=== PATIENT | male | born 1960 | race American Indian/Alaskan Native ===

== ENCOUNTER 2018-07-16 15:06 | Inpatient (IN) | payer OTHER ==
[2018-07-16 15:11] VITALS: BMI 25.0
--- NOTE | 2018-07-16 15:45 | C.PDOC ---
History Of Present Illness 58 y/o male presents to ED with c/o left 1st toe diabetic ulcer for "1 year" worse for 1 month. Patient took unknown antibiotic and finished 1 month ago with no improvement. Patient saw Dr. Johnson who advised patient to come to ED for admission. Patient denies fever, chills, trauma or any other complaints at this time. Time Seen by Provider: 07/16/18 15:26 Chief Complaint (Nursing): Abnormal Skin Integrity History Per: Patient History/Exam Limitations: no limitations Onset/Duration Of Symptoms: Days Current Symptoms Are (Timing): Still Present Past Medical History Reviewed: Historical Data, Nursing Documentation, Vital Signs Vital Signs: Last Vital Signs Temp 98.6 F 07/16/18 15:12 Pulse 85 07/16/18 15:12 Resp 18 07/16/18 15:12 BP 108/74 07/16/18 15:12 Pulse Ox 97 07/16/18 15:12 - Medical History PMH: HTN, Hypercholesterolemia Surgical History: No Surg Hx Family History: States: No Known Family Hx - Social History Hx Tobacco Use: Yes Hx Alcohol Use: Yes Hx Substance Use: No - Immunization History Hx Tetanus Toxoid Vaccination: No Hx Influenza Vaccination: Yes Hx Pneumococcal Vaccination: No Review Of Systems Constitutional: Negative for: Fever, Chills Musculoskeletal: Positive for: Foot Pain Skin: Positive for: Other (ulcer to 1st left toe). Negative for: Rash Physical Exam - Physical Exam Appears: Non-toxic, No Acute Distress Skin: Warm, Dry, No Rash Head: Atraumatic, Normacephalic Eye(s): bilateral: Normal Inspection Oral Mucosa: Moist Neck: Normal ROM, Supple Cardiovascular: Rhythm Regular Respiratory: Normal Breath Sounds, No Rales, No Rhonchi, No Wheezing Extremity: Capillary Refill (<2 seconds), Other (Diabetic foot ulcerabove left 1st toe, No lymphangitis or discharge. Multiple amputations on both feet) Extremity: Bilateral: Normal ROM Pulses: Left Dorsalis Pedis: Normal Neurological/Psych: Oriented x3, Normal Speech, Normal Motor, Normal Sensation ED Course And Treatment - Laboratory Results Result Diagrams: 07/16/18 16:22 07/16/18 16:22 O2 Sat by Pulse Oximetry: 97 (RA) Pulse Ox Interpretation: Normal - Radiology CXR: Interpreted by Me CXR Interpretation: Yes: No Acute Disease - Other Rad L 1 TOE X-Ray: Interpreted by Me ( DISTAL PHALANX DECORT NO FX) Progress - Re-Evaluation Re-evaluation Note: 07/16/18 15:56 D/W POD RESIDENT WILL EVAL IN ER 07/16/18 17:01 D/W DR Ruth GTZ C/F PMD WILL ADMIT - Data Reviewed Data Reviewed: Lab, Diagnostic imaging, Old records Disposition Counseled Patient/Family Regarding: Studies Performed, Diagnosis - Disposition Disposition: HOSPITALIZED Disposition Time: 17:01 Condition: SERIOUS Forms: [facility] (Jordanian) - POA Present On Arrival: None - Clinical Impression Clinical Impression: Toe ulcer, Osteomyelitis - Scribe Statement The provider has reviewed the documentation as recorded by the Kurtibana Tucker All medical record entries made by the Kurtibana were at my direction and personally dictated by me. I have reviewed the chart and agree that the record accurately reflects my personal performance of the history, physical exam, medic al decision making, and the department course for this patient. I have also personally directed, reviewed, and agree with the discharge instructions and disposition.
[2018-07-16] MEDS ORDERED: Vancomycin 1 GM 1 GM/250 ML BAG IV SCH (16:00)
[2018-07-16 16:25] LABS: BASO # 0.1 K/uL (0.0-0.2); BASO % 0.9 % (0.0-2.0); EOS # 0.1 K/uL (0.0-0.7); EOS % 1.1 % (0.0-4.0); LYMPH # 1.7 K/uL (1.0-4.3); LYMPH % 24.6 % (20.0-40.0); MEAN CELL VOLUME 97.2 fL (80.0-94.0); MEAN CORPUSCULAR HEMOGLOBIN 33.1 pg (27.0-31.0); MEAN PLATELET VOLUME 9.3 fL (7.2-11.7); MONO # 0.6 K/uL (0.0-0.8); MONO % 8.8 % (0.0-10.0); NEUT # 4.5 K/uL (1.8-7.0); NEUT % 64.6 % (50.0-75.0); NRBC % 0.1 % (0.0-2.0); RBC 3.88 Mil/uL (4.40-5.90); RED CELL DISTRIBUTION WIDTH 15.2 % (11.5-14.5); WHITE BLOOD COUNT 6.9 K/uL (4.8-10.8)
[2018-07-16 16:27] LABS: HEMOGLOBIN 12.8 g/dL (12.0-18.0)
[2018-07-16 16:40] LABS: BLOOD UREA NITROGEN 10 mg/dL (9-20); CALCIUM 8.4 mg/dl (8.6-10.4); GFR NON-AFRICAN AMERICAN > 60
--- NOTE | 2018-07-16 16:45 | RAD ---
PROCEDURE: Radiographs of the left great toe. TECHNIQUE:: AP radiograph of the left foot, with oblique and lateral view of the left great toe. COMPARISON: None. FINDINGS: BONES: At the 2nd and 3rd interphalangeal joint levels just proximal to that amputation status is noted. No acute fracture seen. On the lateral view of the great toe plantar cortical irregularities concerning for contiguous osteomyelitis and contiguous cellulitis is suspect. Correlate clinically. The frontal view shows prominent exostosis of the medial great toe distal phalanx. 1st metatarsal-phalangeal joint arthrosis Flexion deformity of the 4th DIP joint JOINTS: Normal. SOFT TISSUES: Normal. OTHER FINDINGS: None. IMPRESSION: On the lateral view of the great toe plantar cortical irregularities concerning for contiguous osteomyelitis and contiguous cellulitis is suspect. Correlate clinically. The frontal view shows prominent exostosis of the medial great toe distal phalanx. Other findings as above. Comments: Study marked for PA review .
--- NOTE | 2018-07-16 16:51 | RAD ---
Date of service: 07/16/2018 HISTORY: MED CLEAR COMPARISON: 08/09/2014 TECHNIQUE: PA and lateral three views FINDINGS: LUNGS: Bilateral hyperaeration. Trace left basal thread-like atelectasis/scarring. No interval consolidation. PLEURA: No significant pleural effusion identified. No pneumothorax apparent. CARDIOVASCULAR: There is presence of aortic atherosclerotic calcification on x-ray. Mild cardiomegaly no pulmonary vascular congestion. OSSEOUS STRUCTURES: Exuberant thoraco lumbar spondylosis. Calcification ossification of anterior longitudinal ligament. Diffuse idiopathic skeletal hyperostoses DISH is inferred VISUALIZED UPPER ABDOMEN: Normal. OTHER FINDINGS: None. IMPRESSION: No acute infiltrate. Other findings as above.
[2018-07-16] MEDS ORDERED: Vancomycin 1 gm/NS 200 ml 1 GM/200 ML BAG IVPB ONE (17:00)
[2018-07-16] MEDS: Piperacill/Tazo 3.375gm in Dex 3.375 GM/50 ML BAG IVPB SCH (20:10)
[2018-07-16] MEDS: Enoxaparin 40 mg Syringe SC SCH (20:11)
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
[2018-07-17] MEDS: Piperacill/Tazo 3.375gm in Dex 3.375 GM/50 ML BAG IVPB SCH ×3 (03:00→19:40)
[2018-07-17] MEDS: Enoxaparin 40 mg Syringe SC SCH (10:01)
--- NOTE | 2018-07-17 10:01 | CP.PCM.PN ---
Subjective - Date & Time of Evaluation Date of Evaluation: 07/17/18 Time of Evaluation: 09:58 - Subjective Subjective: Vascular Surgery Progress Note for Dr. Johnson This 58M was seen and examined this Am at bedside no acute events reported overnight. He reports that his legs and arms feel cold and that they hurt when he walks otherwise no complaints. Objective - Vital Signs/Intake and Output Vital Signs (last 24 hours): Temp Pulse Resp BP Pulse Ox 98 F 84 20 153/98 H 96 07/17/18 07:43 07/17/18 07:43 07/17/18 07:43 07/17/18 07:43 07/17/18 07:43 Intake and Output: 07/17/18 07/17/18 06:59 18:59 Intake Total 200 Balance 200 - Medications Medications: Current Medications Acetaminophen (Tylenol 325mg Tab) 650 mg PO Q6 PRN PRN Reason: Fever >100.4 F Enoxaparin Sodium (Lovenox) 40 mg SC DAILY [facility] Last Admin: 07/16/18 20:11 Dose: Not Given Vancomycin HCl 1 gm/ Sodium (Chloride) 250 mls @ 166.7 mls/hr IVPB Q24H [facility]; Protocol Piperacillin Sod/Tazobactam Sod (Zosyn 3.375 Gm Iv Premix) 3.375 gm in 50 mls @ 100 mls/hr IVPB Q8H [facility]; Protocol Last Admin: 07/16/18 20:10 Dose: 100 mls/hr Insulin Human Regular (Novolin R) 0 unit SC ACHS [facility]; Protocol Pneumococcal Polyvalent Vaccine (Pneumovax 23 Vaccine) 0.5 ml IM .ONCE ONE Stop: 07/18/18 10:01 - Labs Labs: 07/16/18 16:22 07/16/18 16:22 - Constitutional Appears: Non-toxic, No Acute Distress - Head Exam Head Exam: ATRAUMATIC, NORMOCEPHALIC - Eye Exam Eye Exam: EOMI - ENT Exam ENT Exam: Mucous Membranes Moist - Respiratory Exam Respiratory Exam: NORMAL BREATHING PATTERN - Cardiovascular Exam Cardiovascular Exam: +S1, +S2 - GI/Abdominal Exam GI & Abdominal Exam: Soft. absent: Tenderness - Extremities Exam Additional comments: LLE DP and PT palpable 2+ - Neurological Exam Neurological Exam: Alert, Awake - Psychiatric Exam Psychiatric exam: Normal Affect, Normal Mood - Skin Skin Exam: Dry, Intact Assessment and Plan - Assessment and Plan (Free Text) Assessment: 58M with Right hallux ulcer Followup vascular studies Continue medical management per primary team continue management per podiatry. Further recs per Dr. Alex Looney PGY3
[2018-07-17] MEDS ORDERED: (Novolin R) Insulin Human Regular 100 units/ml vial SC SCH (11:30)
[2018-07-17 11:33] LABS: BASO # 0.1 K/uL (0.0-0.2); BASO % 0.8 % (0.0-2.0); EOS # 0.2 K/uL (0.0-0.7); EOS % 1.8 % (0.0-4.0); HEMOGLOBIN 13.5 g/dL (12.0-18.0); LYMPH # 1.4 K/uL (1.0-4.3); LYMPH % 15.8 % (20.0-40.0); MEAN CELL VOLUME 98.1 fL (80.0-94.0); MEAN CORPUSCULAR HEMOGLOBIN 33.4 pg (27.0-31.0); MEAN CORPUSCULAR HGB CONC 34.1 g/dL (33.0-37.0); MEAN PLATELET VOLUME 9.8 fL (7.2-11.7); MONO # 0.9 K/uL (0.0-0.8); MONO % 10.3 % (0.0-10.0); NEUT # 6.2 K/uL (1.8-7.0); NEUT % 71.3 % (50.0-75.0); RBC 4.05 Mil/uL (4.40-5.90); WHITE BLOOD COUNT 8.7 K/uL (4.8-10.8)
[2018-07-17 11:39] LABS: PROTHROMBIN TIME 11.2 SECONDS (9.7-12.2)
[2018-07-17 11:47] LABS: ALB/GLOB RATIO 1.3 (1.0-2.1); ALBUMIN 4.2 g/dL (3.5-5.0); ALT/SGPT 39 U/L (21-72); AST/SGOT 69 U/L (17-59); BLOOD UREA NITROGEN 10 mg/dL (9-20); CALCIUM 8.8 mg/dl (8.6-10.4); GFR NON-AFRICAN AMERICAN > 60
[2018-07-17] MEDS: Multiple Vitamins Tab PO SCH (12:25)
--- NOTE | 2018-07-17 12:55 | CP.PCM.PN ---
Subjective - Date & Time of Evaluation Date of Evaluation: 07/17/18 Time of Evaluation: 12:49 - Subjective Subjective: Podiatry Consult Note for Dr. Blackman 58M seen and evaluated at bedside with Dr. Blackman for left plantar hallux ulceration. Patient is AAO x 3 and NAD, resting comfortably in bed at time of visit. Denies any pain to his foot or any new pedal complaints at this time. Denies any pain to his foot. Denies any recent N/V/F/C/CP/SOB/D Objective - Vital Signs/Intake and Output Vital Signs (last 24 hours): Temp Pulse Resp BP Pulse Ox 98 F 84 20 153/98 H 96 07/17/18 07:43 07/17/18 07:43 07/17/18 07:43 07/17/18 07:43 07/17/18 07:43 Intake and Output: 07/17/18 07/17/18 06:59 18:59 Intake Total 200 Balance 200 - Medications Medications: Current Medications Acetaminophen (Tylenol 325mg Tab) 650 mg PO Q6 PRN PRN Reason: Fever >100.4 F Amlodipine Besylate (Norvasc) 5 mg PO DAILY [facility] Last Admin: 07/17/18 12:25 Dose: 5 mg Ascorbic Acid (Vitamin C 500 Mg Tab) 500 mg PO DAILY [facility] Last Admin: 07/17/18 12:25 Dose: 500 mg Enoxaparin Sodium (Lovenox) 40 mg SC DAILY [facility] Last Admin: 07/17/18 10:01 Dose: Not Given Gabapentin (Neurontin) 300 mg PO HS [facility] Vancomycin HCl 1 gm/ Sodium (Chloride) 250 mls @ 166.7 mls/hr IVPB Q24H [facility]; Protocol Piperacillin Sod/Tazobactam Sod (Zosyn 3.375 Gm Iv Premix) 3.375 gm in 50 mls @ 100 mls/hr IVPB Q8H [facility]; Protocol Last Admin: 07/17/18 10:00 Dose: 100 mls/hr Multivitamins (Hexavitamin) 1 tab PO DAILY [facility] Last Admin: 07/17/18 12:25 Dose: 1 tab Pneumococcal Polyvalent Vaccine (Pneumovax 23 Vaccine) 0.5 ml IM .ONCE ONE Stop: 07/18/18 10:01 - Labs Labs: 07/17/18 11:24 07/17/18 11:24 PT 11.2 SECONDS (9.7-12.2) 07/17/18 11:24 INR 1.0 07/17/18 11:24 APTT 29 SECONDS (21-34) 07/17/18 11:24 - Constitutional Appears: Well, Non-toxic, No Acute Distress - Extremities Exam Additional comments: LLE focused exam: Vasc: DP/PT pulses palpable 2/4. Skin temperature warm to warm from proximal to distal WNL. CFT < 3 seconds to all digits. Minimal edema noted to hallux Neuro: Epicritic and protective sensation grossly diminished Derm: Superficial ulceration with partially overlying callous formation noted to plantar aspect of left hallux. Minimal serous drainage appreciated. No malodor, probe to bone, tracking, tunneling or undermining. No other clinical signs of infection appreciated MSK: Minimal POP to plantar aspect of hallux. Previous partial amputation of left second and third digits appreciated - Neurological Exam Neurological Exam: Alert, Awake, Oriented x3 - Psychiatric Exam Psychiatric exam: Normal Affect, Normal Mood Assessment and Plan - Assessment and Plan (Free Text) Assessment: 58M seen and evaluated at bedside with Dr. Blackman for left plantar hallux ulceration. Plan: Patient seen and evaluated with Dr. Blackman Afebrile, absent leukocytosis Continue IV abx per ID F/u Vascular studies F/u ESR F/u Wound cx L foot xray: On the lateral view of the great toe plantar cortical irre gularities concerning for contiguous osteomyelitis and contiguous cellulitis is suspect. Correlate clinically. The frontal view shows prominent exostosis of the medial great toe distal phalanx. Patient refusing MRI No plan for surgical intervention at this time Dr. Blackman would like patient placed in [facility] for continued IV abx Podiatry will continue to follow while patient in house
--- NOTE | 2018-07-17 14:50 | CP.PCM.CON ---
History of Present Illness - History of Present Illness History of Present Illness: 58M was sent to by his armature winder for ulcer of L hallux. Pt states he has had a small ulcer on his L great toe for some time now He has been seeing his armature winder and was told to come to the hospital for further evaluation of his vascular disease. ID CONSULTED FOR ANTIBIOTIC MANAGEMENT PODIATRY AND VASCULAR ON BOARD IMAGING AND CULTURES PENDING PMHx: HTN PSHx: L inguinal hernia rx, R hallux amputation SocialHx: denies smoking/EtOH/drugs Review of Systems - Review of Systems All systems: reviewed and no additional remarkable complaints except - Constitutional Constitutional: As Per HPI - EENT Eyes: absent: As Per HPI, Blind Spots, Blurred Vision, Change in Vision, Decre ased Night Vision, Diplopia, Discharge, Dry Eye, Exophthalmos, Floaters, Irritation, Itchy Eyes, Loss of Peripheral Vision, Pain, Photophobia, Requires Corrective Lenses, Sees Flashes, Spots in Vision, Tunnel Vision, Other Visual Disturbances, Loss of Vision, Other Ears: absent: As Per HPI, Decreased Hearing, Ear Discharge, Ear Pain, Tinnitus, Abnormal Hearing, Disequilibrium, Dizziness, Other Nose/Mouth/Throat: absent: As Per HPI, Epistaxis, Nasal Congestion, Nasal Discharge, Nasal Obstruction, Nasal Trauma, Nose Pain, Post Nasal Drip, Sinus P ain, Sinus Pressure, Bleeding Gums, Change in Voice, Dental Pain, Dry Mouth, Dysphagia, Halitosis, Hoarsness, Lip Swelling, Mouth Lesions, Mouth Pain, Odynophagia, Sore Throat, Throat Swelling, Tongue Swelling, Facial Pain, Neck Pain, Neck Mass, Other - Cardiovascular Cardiovascular: absent: As Per HPI, Acrocyanosis, Chest Pain, Chest Pain at Rest, Chest Pain with Activity, Claudication, Diaphoresis, Dyspnea, Dyspnea on Exertion, Edema, Irregular Heart Rhythm, Pain Radiating to Arm/Neck/Jaw, Leg Edema, Leg Ulcers, Lightheadedness, Orthopnea, Palpitations, Paroxysmal Nocturnal Dyspnea, Pedal Edema, Radiating Pain, Rapid Heart Rate, Slow Heart Rate, Syncope, Other - Respiratory Respiratory: absent: As Per HPI, Cough, Dyspnea, Hemoptysis, Dyspnea on Exertion, Wheezing, Snoring, Stridor, Pain on Inspiration, Chest Congestion, Excessive Mucous Production, Change in Mucous Color, Pain with Coughing, Other - Genitourinary Genitourinary: absent: As Per HPI, Change in Urinary Stream, Difficulty Urinating, Dysuria, Flank Pain, Hematuria, Pyuria, Nocturia, Urinary Incontinence, Urinary Frequency, Urinary Hesitance, Urinary Urgency, Voiding Freq/Small Amts, Freq UTI, Hx Renal/Bladder Calculi, Hx /Renal Surgery, Bladder Distension, Other - Musculoskeletal Musculoskeletal: As Per HPI - Integumentary Integumentary: As Per HPI - Neurological Neurological: absent: As Per HPI, Abnormal Gait, Abnormal Hearing, Abnormal Movements, Abnormal Speech, Behavioral Changes, Burning Sensations, Confusion, Convulsions, Disequilibrium, Dizziness, Numbness, Focal Weakness, Frequent Falls, Headaches, Lack of Coordination, Loss of Vision, Memory Loss, Paresthesias, Radicular Pain, Restless Legs, Sensory Deficit, Syncope, Tingling, Tremor, Vertigo, Weakness, Other Visual Disturbances, Other Past Patient History - Past Medical History & Family History Past Medical History?: Yes - Past Social History Smoking Status: Smoker Currrent Status Unknown - CARDIAC Hx Hypertension: Yes - PULMONARY Hx Tuberculosis: No - NEUROLOGICAL Hx Neurological Disorder: Yes HX Cerebrovascular Accident: Yes ("TWO STROKES") - ENDOCRINE/METABOLIC Hx Endocrine Disorders: Yes Hx Diabetes Mellitus Type 2: Yes - HEMATOLOGICAL/ONCOLOGICAL Hx Cancer: No - INTEGUMENTARY Hx Dermatological Problems: Yes - MUSCULOSKELETAL/RHEUMATOLOGICAL Hx Musculoskeletal Disorders: Yes Hx Falls: No Hx Unsteady Gait: Yes Other/Comment: w/ bilateral foot amputation, use quad cane for walking - GASTROINTESTINAL Hx Gastrointestinal Disorders: No - GENITOURINARY/GYNECOLOGICAL Hx Genitourinary Disorders: No - PSYCHIATRIC Hx Substance Use: No - SURGICAL HISTORY Hx Surgeries: Yes Hx Herniorrhaphy: Yes Other/Comment: W surgery - ANESTHESIA Hx Anesthesia: Yes Hx Anesthesia Reactions: No Meds Allergies/Adverse Reactions: Allergies Allergy/AdvReac Type Severity Reaction Status Date / Time No Known Allergies Allergy Verified 07/16/18 15:10 - Medications Medications: Current Medications Acetaminophen (Tylenol 325mg Tab) 650 mg PO Q6 PRN PRN Reason: Fever >100.4 F Amlodipine Besylate (Norvasc) 5 mg PO DAILY [facility] Last Admin: 07/17/18 12:25 Dose: 5 mg Ascorbic Acid (Vitamin C 500 Mg Tab) 500 mg PO DAILY [facility] Last Admin: 07/17/18 12:25 Dose: 500 mg Enoxaparin Sodium (Lovenox) 40 mg SC DAILY [facility] Last Admin: 07/17/18 10:01 Dose: Not Given Gabapentin (Neurontin) 300 mg PO HS [facility] Vancomycin HCl 1 gm/ Sodium (Chloride) 250 mls @ 166.7 mls/hr IVPB Q24H [facility]; Protocol Piperacillin Sod/Tazobactam Sod (Zosyn 3.375 Gm Iv Premix) 3.375 gm in 50 mls @ 100 mls/hr IVPB Q8H [facility]; Protocol Last Admin: 07/17/18 10:00 Dose: 100 mls/hr Multivitamins (Hexavitamin) 1 tab PO DAILY [facility] Last Admin: 07/17/18 12:25 Dose: 1 tab Pneumococcal Polyvalent Vaccine (Pneumovax 23 Vaccine) 0.5 ml IM .ONCE ONE Stop: 07/18/18 10:01 Physical Exam - Constitutional Appears: Non-toxic, Chronically Ill - Head Exam Head Exam: NORMOCEPHALIC - Eye Exam Eye Exam: absent: Scleral icterus - ENT Exam ENT Exam: Mucous Membranes Dry - Neck Exam Neck exam: Negative for: Lymphadenopathy - Respiratory Exam Respiratory Exam: Decreased Breath Sounds - Cardiovascular Exam Cardiovascular Exam: REGULAR RHYTHM - GI/Abdominal Exam GI & Abdominal Exam: Diminished Bowel Sounds, Soft - Rectal Exam Rectal Exam: Deferred - Exam Exam: NORMAL INSPECTION - Extremities Exam Extremities exam: Negative for: pedal edema Additional comments: + ulcer left great toe - Back Exam Back exam: absent: CVA tenderness (L), CVA tenderness (R) - Neurological Exam Neurological exam: Alert, CN II-XII Intact, Oriented x3, Reflexes Normal - Psychiatric Exam Psychiatric exam: Normal Mood - Skin Skin Exam: Dry Results - Vital Signs Recent Vital Signs: Last Vital Signs Temp 98 F 07/17/18 07:43 Pulse 84 07/17/18 07:43 Resp 20 07/17/18 07:43 BP 153/98 H 07/17/18 07:43 Pulse Ox 96 07/17/18 07:43 - Labs Result Diagrams: 07/17/18 11:24 07/17/18 11:24 Labs: Laboratory Results - last 24 hr 07/16/18 07/16/18 07/16/18 15:27 16:22 16:22 WBC 6.9 RBC 3.88 L Hgb 12.8 D Hct 37.7 MCV 97.2 H MCH 33.1 H MCHC 34.0 RDW 15.2 H Plt Count 128 L MPV 9.3 Neut % (Auto) 64.6 Lymph % (Auto) 24.6 [place] % (Auto) 8.8 Eos % (Auto) 1.1 Baso % (Auto) 0.9 Neut # (Auto) 4.5 Lymph # (Auto) 1.7 [place] # (Auto) 0.6 Eos # (Auto) 0.1 Baso # (Auto) 0.1 Differential Comment ESR PT INR APTT Sodium 143 Potassium 3.7 Chloride 101 Carbon Dioxide 27 Anion Gap 19 BUN 10 Creatinine 0.6 L Est GFR ( Amer) > 60 Est GFR (Non-Af Amer) > 60 POC Glucose (mg/dL) 128 H Random Glucose 93 Hemoglobin A1c Calcium 8.4 L Phosphorus Magnesium Total Bilirubin AST ALT Alkaline Phosphatase Total Protein Albumin Globulin Albumin/Globulin Ratio 07/16/18 07/17/18 07/17/18 21:43 07:12 11:19 WBC RBC Hgb Hct MCV MCH MCHC RDW Plt Count MPV Neut % (Auto) Lymph % (Auto) [place] % (Auto) Eos % (Auto) Baso % (Auto) Neut # (Auto) Lymph # (Auto) [place] # (Auto) Eos # (Auto) Baso # (Auto) Differential Comment ESR PT INR APTT Sodium Potassium Chloride Carbon Dioxide Anion Gap BUN Creatinine Est GFR ( Amer) Est GFR (Non-Af Amer) POC Glucose (mg/dL) 118 H 91 92 Random Glucose Hemoglobin A1c Calcium Phosphorus Magnesium Total Bilirubin AST ALT Alkaline Phosphatase Total Protein Albumin Globulin Albumin/Globulin Ratio 07/17/18 07/17/18 07/17/18 11:24 11:24 11:24 WBC 8.7 RBC 4.05 L Hgb 13.5 Hct 39.8 MCV 98.1 H MCH 33.4 H MCHC 34.1 RDW 15.0 H Plt Count 130 MPV 9.8 Neut % (Auto) 71.3 Lymph % (Auto) 15.8 L [place] % (Auto) 10.3 H Eos % (Auto) 1.8 Baso % (Auto) 0.8 Neut # (Auto) 6.2 Lymph # (Auto) 1.4 [place] # (Auto) 0.9 H Eos # (Auto) 0.2 Baso # (Auto) 0.1 Differential Comment ESR 9 PT INR APTT Sodium 139 Potassium 3.6 Chloride 98 Carbon Dioxide 28 Anion Gap 17 BUN 10 Creatinine 0.8 Est GFR ( Amer) > 60 Est GFR (Non-Af Amer) > 60 POC Glucose (mg/dL) Random Glucose 98 Hemoglobin A1c 5.6 Calcium 8.8 Phosphorus 2.9 Magnesium 1.7 Total Bilirubin 0.7 AST 69 H ALT 39 Alkaline Phosphatase 68 Total Protein 7.5 Albumin 4.2 Globulin 3.3 Albumin/Globulin Ratio 1.3 07/17/18 11:24 WBC RBC Hgb Hct MCV MCH MCHC RDW Plt Count MPV Neut % (Auto) Lymph % (Auto) [place] % (Auto) Eos % (Auto) Baso % (Auto) Neut # (Auto) Lymph # (Auto) [place] # (Auto) Eos # (Auto) Baso # (Auto) Differential Comment ESR PT 11.2 INR 1.0 APTT 29 Sodium Potassium Chloride Carbon Dioxide Anion Gap BUN Creatinine Est GFR ( Amer) Est GFR (Non-Af Amer) POC Glucose (mg/dL) Random Glucose Hemoglobin A1c Calcium Phosphorus Magnesium Total Bilirubin AST ALT Alkaline Phosphatase Total Protein Albumin Globulin Albumin/Globulin Ratio Assessment & Plan (1) Osteomyelitis Status: Acute (2) Toe ulcer Status: Acute (3) Alcohol abuse Status: Acute - Assessment and Plan (Free Text) Assessment: vascular and podiatry on board cont iv rx as ordered await cultures check vanco levels
--- NOTE | 2018-07-17 14:59 | CP.PCM.PN ---
Subjective - Date & Time of Evaluation Date of Evaluation: 07/17/18 Time of Evaluation: 08:00 - Subjective Subjective: clinically same Objective - Vital Signs/Intake and Output Vital Signs (last 24 hours): Temp Pulse Resp BP Pulse Ox 98 F 84 20 153/98 H 96 07/17/18 07:43 07/17/18 07:43 07/17/18 07:43 07/17/18 07:43 07/17/18 07:43 Intake and Output: 07/17/18 07/17/18 06:59 18:59 Intake Total 200 Balance 200 - Medications Medications: Current Medications Acetaminophen (Tylenol 325mg Tab) 650 mg PO Q6 PRN PRN Reason: Fever >100.4 F Amlodipine Besylate (Norvasc) 5 mg PO DAILY [facility] Last Admin: 07/17/18 12:25 Dose: 5 mg Ascorbic Acid (Vitamin C 500 Mg Tab) 500 mg PO DAILY [facility] Last Admin: 07/17/18 12:25 Dose: 500 mg Enoxaparin Sodium (Lovenox) 40 mg SC DAILY [facility] Last Admin: 07/17/18 10:01 Dose: Not Given Gabapentin (Neurontin) 300 mg PO HS [facility] Vancomycin HCl 1 gm/ Sodium (Chloride) 250 mls @ 166.7 mls/hr IVPB Q24H [facility]; Protocol Piperacillin Sod/Tazobactam Sod (Zosyn 3.375 Gm Iv Premix) 3.375 gm in 50 mls @ 100 mls/hr IVPB Q8H [facility]; Protocol Last Admin: 07/17/18 10:00 Dose: 100 mls/hr Multivitamins (Hexavitamin) 1 tab PO DAILY [facility] Last Admin: 07/17/18 12:25 Dose: 1 tab Pneumococcal Polyvalent Vaccine (Pneumovax 23 Vaccine) 0.5 ml IM .ONCE ONE Stop: 07/18/18 10:01 - Labs Labs: 07/17/18 11:24 07/17/18 11:24 PT 11.2 SECONDS (9.7-12.2) 07/17/18 11:24 INR 1.0 07/17/18 11:24 APTT 29 SECONDS (21-34) 07/17/18 11:24 - Constitutional Appears: Well - Head Exam Head Exam: ATRAUMATIC, NORMAL INSPECTION, NORMOCEPHALIC - Eye Exam Eye Exam: EOMI, Normal appearance, PERRL Pupil Exam: NORMAL ACCOMODATION, PERRL - ENT Exam ENT Exam: Mucous Membranes Moist, Normal Exam - Neck Exam Neck Exam: Full ROM, Normal Inspection. absent: Lymphadenopathy - Respiratory Exam Respiratory Exam: Decreased Breath Sounds - Cardiovascular Exam Cardiovascular Exam: REGULAR RHYTHM, +S1, +S2 - GI/Abdominal Exam GI & Abdominal Exam: Soft, Diminished Bowel Sounds - Rectal Exam Rectal Exam: Deferred
--- NOTE | 2018-07-17 15:13 | CP.PCM.PN ---
"<Ghanshyam Beach - Last Filed: 07/17/18 15:08> Subjective - Date & Time of Evaluation Date of Evaluation: 07/17/18 Time of Evaluation: 15:09 - Subjective Subjective: Patient admitted for Left 1st Toe foot Ulcer. PMHx: HTN PSHx: Left Inguinal Hernia repair, Right Hallux amputation. SocialHx: Denies smoking/EtOH/illicit drug use All: NKDA Meds: Vitamin C 500 Daily, Percocet 5/325 PRN, Norvasc 5 Dialy, Protonix 40 Daily, Multivitaimns, Colace 100 Daily, Vitamin B12, Folate, Gabapentin 300mg HS Patient seen and examined at bedside. NO overnight events reported. Pain is controlled. Patient denies any fevers, chills, SOB, chest pain, abdominal pain, n/v/, changes in bowel habits, or urinary symptoms. Objective - Vital Signs/Intake and Output Vital Signs (last 24 hours): Temp Pulse Resp BP Pulse Ox 98 F 84 20 153/98 H 96 07/17/18 07:43 07/17/18 07:43 07/17/18 07:43 07/17/18 07:43 07/17/18 07:43 Intake and Output: 07/17/18 07/17/18 06:59 18:59 Intake Total 200 Balance 200 - Medications Medications: Current Medications Acetaminophen (Tylenol 325mg Tab) 650 mg PO Q6 PRN PRN Reason: Fever >100.4 F Amlodipine Besylate (Norvasc) 5 mg PO DAILY [facility] Last Admin: 07/17/18 12:25 Dose: 5 mg Ascorbic Acid (Vitamin C 500 Mg Tab) 500 mg PO DAILY [facility] Last Admin: 07/17/18 12:25 Dose: 500 mg Enoxaparin Sodium (Lovenox) 40 mg SC DAILY [facility] Last Admin: 07/17/18 10:01 Dose: Not Given Gabapentin (Neurontin) 300 mg PO HS [facility] Vancomycin HCl 1 gm/ Sodium (Chloride) 250 mls @ 166.7 mls/hr IVPB Q24H [facility]; Protocol Piperacillin Sod/Tazobactam Sod (Zosyn 3.375 Gm Iv Premix) 3.375 gm in 50 mls @ 100 mls/hr IVPB Q8H [facility]; Protocol Last Admin: 07/17/18 10:00 Dose: 100 mls/hr Multivitamins (Hexavitamin) 1 tab PO DAILY [facility] Last Admin: 07/17/18 12:25 Dose: 1 tab Pneumococcal Polyvalent Vaccine (Pneumovax 23 Vaccine) 0.5 ml IM .ONCE ONE Stop: 07/18/18 10:01 - Labs Labs: 07/17/18 11:24 07/17/18 11:24 PT 11.2 SECONDS (9.7-12.2) 07/17/18 11:24 INR 1.0 07/17/18 11:24 APTT 29 SECONDS (21-34) 07/17/18 11:24 - Constitutional Appears: Well, Non-toxic, No Acute Distress - Head Exam Head Exam: ATRAUMATIC, NORMAL INSPECTION, NORMOCEPHALIC - Eye Exam Eye Exam: EOMI, Normal appearance - ENT Exam ENT Exam: Mucous Membranes Moist - Respiratory Exam Respiratory Exam: Clear to Ausculation Bilateral, NORMAL BREATHING PATTERN. absent: Accessory Muscle Use - Cardiovascular Exam Cardiovascular Exam: RRR, +S1, +S2 - GI/Abdominal Exam GI & Abdominal Exam: Soft, Normal Bowel Sounds. absent: Tenderness - Extremities Exam Extremities Exam: absent: Pedal Edema Additional comments: LLE focused exam: Vasc: DP/PT pulses palpable 2/4. Skin temperature warm to warm from proximal to distal WNL. CFT < 3 seconds to all digits. Minimal edema noted to hallux Neuro: Epicritic and protective sensation grossly diminished Derm: Superficial ulceration with partially overlying callous formation noted to plantar aspect of left hallux. Minimal serous drainage appreciated. No malodor, probe to bone, tracking, tunneling or undermining. No other clinical signs of infection appreciated MSK: Minimal POP to plantar aspect of hallux. Previous partial amputation of left second and third digits appreciated - Neurological Exam Neurological Exam: Alert, Awake, Oriented x3 - Psychiatric Exam Psychiatric exam: Normal Affect, Normal Mood - Skin Skin Exam: Dry, Intact, Normal Color, Warm Assessment and Plan - Assessment and Plan (Free Text) Assessment: 58 year old with history of HTN admitted for evaluation and treatment of Left 1st toe Ulcer. Plan: Left Hallux Ulcer Vascular Surgery Consulted (Dr. Johnson), Recs Appreciated ID Consulted (Dr. Pereira), Recs Appreciated Podiatry Consulted (Dr. Simmons), Recs appreciated Nursing Wound Care Foot X-ray (Admission): On the lateral view of the great toe plantar cortical irregularities concerning for contiguous osteomyelitis and contiguous cellulitis is suspect. Correlate clinically. The frontal view shows prominent exostosis of the medial great toe distal phalanx. MRI: PENDING Blood Culture - PENDING | Wound Cultures - PENDING Meds: Vancomycin 1gram Daily Zosyn 3.375 Q8H Tylenol PRN Vitamin C 500mg PO Daily Gabapentin 300mg PO HS Elevated Liver Enzymes Hepatitis Panel Hx of HTN Meds: Amlodipine 5 Proph Lovenox SCD's Contraindicated NO GI proph indicated Heart Healthy Diet Patient discussed with Attending Ghanshyam Beach, PGY-2 <Cira Crockett S - Last Filed: 07/19/18 10:36> Objective - Vital Signs/Intake and Output Vital Signs (last 24 hours): Temp Pulse Resp BP Pulse Ox 98.7 F 83 20 115/75 97 07/19/18 08:10 07/19/18 08:10 07/19/18 08:10 07/19/18 08:10 07/19/18 08:10 Intake and Output: 07/19/18 07/19/18 06:59 18:59 Intake Total 930 500 Output Total 650 Balance 280 500 - Medications Medications: Current Medications Acetaminophen (Tylenol 325mg Tab) 650 mg PO Q6 PRN PRN Reason: Fever >100.4 F Last Admin: 07/17/18 17:47 Dose: 650 mg Amlodipine Besylate (Norvasc) 5 mg PO DAILY [facility] Last Admin: 07/19/18 09:40 Dose: 5 mg Ascorbic Acid (Vitamin C 500 Mg Tab) 500 mg PO DAILY [facility] Last Admin: 07/19/18 09:41 Dose: 500 mg Enoxaparin Sodium (Lovenox) 40 mg SC DAILY [facility] Last Admin: 07/19/18 09:41 Dose: Not Given Fluticasone Propionate (Flonase) 0 spr SYLVAIN BID [facility] Last Admin: 07/19/18 09:42 Dose: 1 spr Gabapentin (Neurontin) 300 mg PO HS [facility] Last Admin: 07/18/18 21:26 Dose: 300 mg Vancomycin HCl 1 gm/ Sodium (Chloride) 250 mls @ 166.7 mls/hr IVPB Q24H [facility]; Protocol Last Admin: 07/18/18 17:31 Dose: 166.7 mls/hr Piperacillin Sod/Tazobactam Sod (Zosyn 3.375 Gm Iv Premix) 3.375 gm in 50 mls @ 100 mls/hr IVPB Q8H [facility]; Protocol Last Admin: 07/19/18 10:04 Dose: 100 mls/hr Multivitamins (Hexavitamin) 1 tab PO DAILY [facility] Last Admin: 07/19/18 09:40 Dose: 1 tab - Labs Labs: 07/19/18 08:21 07/19/18 08:21 PT 11.2 SECONDS (9.7-12.2) 07/17/18 11:24 INR 1.0 07/17/18 11:24 APTT 29 SECONDS (21-34) 07/17/18 11:24 Assessment and Plan (1) Osteomyelitis Status: Acute (2) Toe ulcer Status: Acute (3) Alcohol abuse Status: Acute (4) Alcohol intoxication Status: Acute (5) Hypothermia Status: Acute (6) Thrombocytopenia Status: Acute (7) Visit for wound check Status: Acute Attending/Attestation - Attestation I have personally seen and examined this patient.: Yes I have fully participated in the care of the patient.: Yes I have reviewed all pertinent clinical information, including history, physical exam and plan: Yes Notes (Text): 07/19/18 10:36 case seen and d/w woth staff"
[2018-07-17 16:47] LABS: HEPATITIS B SURFACE AG Negative (NEGATIVE)
[2018-07-17 16:53] LABS: HEPATITIS A IGM NEGATIVE (NEGATIVE); HEPATITIS B CORE AB NEGATIVE (NEGATIVE)
[2018-07-17 17:05] LABS: HEPATITIS C ANTIBODY NEGATIVE (NEGATIVE)
[2018-07-18] MEDS: Piperacill/Tazo 3.375gm in Dex 3.375 GM/50 ML BAG IVPB SCH ×3 (03:03→20:05)
[2018-07-18] MEDS ORDERED: Fluticasone Nasal 50 mcg/Spray NAS ONE (04:45)
[2018-07-18 07:24] LABS: BASO # 0.1 K/uL (0.0-0.2); BASO % 0.6 % (0.0-2.0); EOS # 0.2 K/uL (0.0-0.7); EOS % 2.7 % (0.0-4.0); HEMOGLOBIN 13.7 g/dL (12.0-18.0); LYMPH # 1.2 K/uL (1.0-4.3); LYMPH % 14.4 % (20.0-40.0); MEAN CELL VOLUME 97.3 fL (80.0-94.0); MEAN CORPUSCULAR HEMOGLOBIN 33.9 pg (27.0-31.0); MEAN CORPUSCULAR HGB CONC 34.8 g/dL (33.0-37.0); MEAN PLATELET VOLUME 10.1 fL (7.2-11.7); MONO % 11.4 % (0.0-10.0); NEUT # 6.1 K/uL (1.8-7.0); NEUT % 70.9 % (50.0-75.0); RBC 4.04 Mil/uL (4.40-5.90); RED CELL DISTRIBUTION WIDTH 14.8 % (11.5-14.5); WHITE BLOOD COUNT 8.6 K/uL (4.8-10.8)
[2018-07-18 07:57] LABS: ALB/GLOB RATIO 1.3 (1.0-2.1); ALT/SGPT 32 U/L (21-72); AST/SGOT 46 U/L (17-59); BLOOD UREA NITROGEN 10 mg/dL (9-20); CALCIUM 9.1 mg/dl (8.6-10.4); GFR NON-AFRICAN AMERICAN > 60
--- NOTE | 2018-07-18 09:33 | CP.PCM.PN ---
Subjective - Date & Time of Evaluation Date of Evaluation: 07/18/18 Time of Evaluation: 09:31 - Subjective Subjective: Podiatry Consult Note for Dr. Blackman 58M seen and evaluated at bedside for left plantar hallux ulceration. Seen resting comfortably in bed. Denies any pain to his foot or any new pedal complaints at this time. Denies any pain to his foot. Denies any recent N/V/F/C/CP/SOB/D. States he is aware of possible transfer to [facility]. Objective - Vital Signs/Intake and Output Vital Signs (last 24 hours): Temp Pulse Resp BP Pulse Ox 98 F 83 20 147/95 H 96 07/18/18 08:17 07/18/18 08:17 07/18/18 08:17 07/18/18 08:17 07/18/18 08:17 Intake and Output: 07/18/18 07/18/18 06:59 18:59 Intake Total 1000 Output Total 400 Balance 600 - Medications Medications: Current Medications Acetaminophen (Tylenol 325mg Tab) 650 mg PO Q6 PRN PRN Reason: Fever >100.4 F Last Admin: 07/17/18 17:47 Dose: 650 mg Amlodipine Besylate (Norvasc) 5 mg PO DAILY [facility] Last Admin: 07/17/18 12:25 Dose: 5 mg Ascorbic Acid (Vitamin C 500 Mg Tab) 500 mg PO DAILY [facility] Last Admin: 07/17/18 12:25 Dose: 500 mg Enoxaparin Sodium (Lovenox) 40 mg SC DAILY [facility] Last Admin: 07/17/18 10:01 Dose: Not Given Gabapentin (Neurontin) 300 mg PO [facility] Last Admin: 07/17/18 21:38 Dose: 300 mg Vancomycin HCl 1 gm/ Sodium (Chloride) 250 mls @ 166.7 mls/hr IVPB Q24H [facility]; Protocol Last Admin: 07/17/18 17:40 Dose: 166.7 mls/hr Piperacillin Sod/Tazobactam Sod (Zosyn 3.375 Gm Iv Premix) 3.375 gm in 50 mls @ 100 mls/hr IVPB Q8H [facility]; Protocol Last Admin: 07/18/18 03:03 Dose: 100 mls/hr Multivitamins (Hexavitamin) 1 tab PO DAILY [facility] Last Admin: 07/17/18 12:25 Dose: 1 tab Pneumococcal Polyvalent Vaccine (Pneumovax 23 Vaccine) 0.5 ml IM .ONCE ONE Stop: 07/18/18 10:01 - Labs Labs: 07/18/18 07:01 07/18/18 07:01 PT 11.2 SECONDS (9.7-12.2) 07/17/18 11:24 INR 1.0 07/17/18 11:24 APTT 29 SECONDS (21-34) 07/17/18 11:24 - Constitutional Appears: Well, Non-toxic, No Acute Distress - Head Exam Head Exam: ATRAUMATIC, NORMOCEPHALIC - Extremities Exam Additional comments: LLE focused exam: Vasc: DP/PT pulses palpable 2/4. Skin temperature warm to warm from proximal to distal WNL. CFT < 3 seconds to all digits. Minimal edema noted to hallux Neuro: Epicritic and protective sensation grossly diminished Derm: Superficial ulceration with partially overlying callous formation noted to plantar aspect of left hallux. Minimal serous drainage appreciated. No malodor, probe to bone, tracking, tunneling or undermining. No other clinical signs of infection appreciated MSK: Minimal POP to plantar aspect of hallux. Previous partial amputation of left second and third digits appreciated - Neurological Exam Neurological Exam: Alert, Awake, Oriented x3 - Psychiatric Exam Psychiatric exam: Normal Affect, Normal Mood Assessment and Plan - Assessment and Plan (Free Text) Assessment: 58M with left plantar hallux ulceration. Plan: Patient seen and evaluated with Dr. Blackman Afebrile, absent leukocytosis Continue IV abx per ID F/u Vascular studies ESR - 9 F/u Wound cx L foot xray: On the lateral view of the great toe plantar cortical irregularities concerning for contiguous osteomyelitis and contiguous cellulitis is suspect. Correlate clinically. The frontal view shows prominent exostosis of the medial great toe distal phalanx. Patient refusing MRI Wound cleansed and dressed with hydrogen peroxide and DSD No plan for surgical intervention at this time Dr. Blackman would like patient placed in [facility] for continued IV abx, patient aware and agreeable Podiatry will continue to follow while patient in house
[2018-07-18] MEDS: Multiple Vitamins Tab PO SCH (09:48)
[2018-07-18] MEDS: Enoxaparin 40 mg Syringe SC SCH (09:50)
[2018-07-18] MEDS ORDERED: Pneumococcal 23-Valent Vaccine IM ONE (10:00)
--- NOTE | 2018-07-18 14:56 | CP.PCM.PN ---
"Subjective - Date & Time of Evaluation Date of Evaluation: 07/18/18 Time of Evaluation: 07:15 - Subjective Subjective: clinically same Objective - Vital Signs/Intake and Output Vital Signs (last 24 hours): Temp Pulse Resp BP Pulse Ox 98 F 83 20 147/95 H 96 07/18/18 08:17 07/18/18 08:17 07/18/18 08:17 07/18/18 08:17 07/18/18 08:17 Intake and Output: 07/18/18 07/18/18 06:59 18:59 Intake Total 1000 Output Total 400 Balance 600 - Medications Medications: Current Medications Acetaminophen (Tylenol 325mg Tab) 650 mg PO Q6 PRN PRN Reason: Fever >100.4 F Last Admin: 07/17/18 17:47 Dose: 650 mg Amlodipine Besylate (Norvasc) 5 mg PO DAILY [facility] Last Admin: 07/18/18 09:48 Dose: 5 mg Ascorbic Acid (Vitamin C 500 Mg Tab) 500 mg PO DAILY [facility] Last Admin: 07/18/18 09:48 Dose: 500 mg Enoxaparin Sodium (Lovenox) 40 mg SC DAILY [facility] Last Admin: 07/18/18 09:50 Dose: Not Given Fluticasone Propionate (Flonase) 0 spr SYLVAIN BID [facility] Gabapentin (Neurontin) 300 mg PO HS [facility] Last Admin: 07/17/18 21:38 Dose: 300 mg Vancomycin HCl 1 gm/ Sodium (Chloride) 250 mls @ 166.7 mls/hr IVPB Q24H [facility]; Protocol Last Admin: 07/17/18 17:40 Dose: 166.7 mls/hr Piperacillin Sod/Tazobactam Sod (Zosyn 3.375 Gm Iv Premix) 3.375 gm in 50 mls @ 100 mls/hr IVPB Q8H [facility]; Protocol Last Admin: 07/18/18 10:03 Dose: 100 mls/hr Multivitamins (Hexavitamin) 1 tab PO DAILY [facility] Last Admin: 07/18/18 09:48 Dose: 1 tab - Labs Labs: 07/18/18 07:01 07/18/18 07:01 PT 11.2 SECONDS (9.7-12.2) 07/17/18 11:24 INR 1.0 07/17/18 11:24 APTT 29 SECONDS (21-34) 07/17/18 11:24 - Constitutional Appears: Well - Head Exam Head Exam: ATRAUMATIC, NORMAL INSPECTION, NORMOCEPHALIC - Eye Exam Eye Exam: EOMI, Normal appearance, PERRL Pupil Exam: NORMAL ACCOMODATION, PERRL - ENT Exam ENT Exam: Mucous Membranes Moist, Normal Exam - Neck Exam Neck Exam: Full ROM, Normal Inspection. absent: Lymphadenopathy - Respiratory Exam Respiratory Exam: Decreased Breath Sounds - Cardiovascular Exam Cardiovascular Exam: REGULAR RHYTHM, +S1, +S2 - GI/Abdominal Exam GI & Abdominal Exam: Soft, Diminished Bowel Sounds - Rectal Exam Rectal Exam: Deferred Assessment and Plan (1) Osteomyelitis Status: Acute (2) Toe ulcer Status: Acute (3) Alcohol abuse Status: Acute (4) Alcohol intoxication Status: Acute (5) Hypothermia Status: Acute (6) Thrombocytopenia Status: Acute (7) Visit for wound check Status: Acute - Assessment and Plan (Free Text) Plan: Left Hallux Ulcer Vascular Surgery Consulted (Dr. Johnson), Recs Appreciated ID Consulted (Dr. Pereira), Recs Appreciated Podiatry Consulted (Dr. Simmons), Recs appreciated Nursing Wound Care Foot X-ray (Admission): On the lateral view of the great toe plantar cortical irregularities concerning for contiguous osteomyelitis and contiguous cellulitis is suspect. Correlate clinically. The frontal view shows prominent exostosis of the medial great toe distal phalanx. MRI: PENDING Blood Culture - PENDING | Wound Cultures - PENDING Meds: Vancomycin 1gram Daily Zosyn 3.375 Q8H Tylenol PRN Vitamin C 500mg PO Daily Gabapentin 300mg PO HS Elevated Liver Enzymes Hepatitis Panel Hx of HTN Meds: Amlodipine 5 Proph Lovenox SCD's Contraindicated NO GI proph indicated Heart Healthy Diet"
[2018-07-18] MEDS: Fluticasone Nasal 50 mcg/Spray NAS SCH (21:25)
[2018-07-19] MEDS: Piperacill/Tazo 3.375gm in Dex 3.375 GM/50 ML BAG IVPB SCH ×3 (02:59→19:29)
[2018-07-19 08:24] LABS: BASO # 0.1 K/uL (0.0-0.2); BASO % 0.7 % (0.0-2.0); EOS # 0.2 K/uL (0.0-0.7); EOS % 2.7 % (0.0-4.0); HEMOGLOBIN 13.7 g/dL (12.0-18.0); LYMPH # 1.4 K/uL (1.0-4.3); LYMPH % 18.1 % (20.0-40.0); MEAN CELL VOLUME 97.4 fL (80.0-94.0); MEAN CORPUSCULAR HEMOGLOBIN 33.3 pg (27.0-31.0); MEAN CORPUSCULAR HGB CONC 34.2 g/dL (33.0-37.0); MEAN PLATELET VOLUME 9.4 fL (7.2-11.7); MONO # 0.9 K/uL (0.0-0.8); MONO % 11.9 % (0.0-10.0); NEUT # 5.1 K/uL (1.8-7.0); NEUT % 66.6 % (50.0-75.0); RBC 4.11 Mil/uL (4.40-5.90); RED CELL DISTRIBUTION WIDTH 14.5 % (11.5-14.5); WHITE BLOOD COUNT 7.7 K/uL (4.8-10.8)
[2018-07-19 09:05] LABS: ALB/GLOB RATIO 1.3 (1.0-2.1); ALBUMIN 4.1 g/dL (3.5-5.0); ALT/SGPT 30 U/L (21-72); AST/SGOT 44 U/L (17-59); BLOOD UREA NITROGEN 12 mg/dL (9-20); CALCIUM 9.1 mg/dl (8.6-10.4); GFR NON-AFRICAN AMERICAN > 60
[2018-07-19] MEDS: Multiple Vitamins Tab PO SCH (09:40)
[2018-07-19] MEDS: Enoxaparin 40 mg Syringe SC SCH (09:41)
[2018-07-19] MEDS: Fluticasone Nasal 50 mcg/Spray NAS SCH ×2 (09:42→17:34)
--- NOTE | 2018-07-19 11:19 | CP.PCM.PN ---
Subjective - Date & Time of Evaluation Date of Evaluation: 07/19/18 Time of Evaluation: 11:16 - Subjective Subjective: Vascular Surgery Progress Note for Dr. Johnson This 58M was seen and examined this Am at bedside no acute events reported overnight. He denies any SOB or Chest pain or any new or concerning symptoms. I discussed his vascular studies with him an all questions were answered. Objective - Vital Signs/Intake and Output Vital Signs (last 24 hours): Temp Pulse Resp BP Pulse Ox 98.7 F 83 20 115/75 97 07/19/18 08:10 07/19/18 08:10 07/19/18 08:10 07/19/18 08:10 07/19/18 08:10 Intake and Output: 07/19/18 07/19/18 06:59 18:59 Intake Total 930 500 Output Total 650 Balance 280 500 - Medications Medications: Current Medications Acetaminophen (Tylenol 325mg Tab) 650 mg PO Q6 PRN PRN Reason: Fever >100.4 F Last Admin: 07/17/18 17:47 Dose: 650 mg Amlodipine Besylate (Norvasc) 5 mg PO DAILY [facility] Last Admin: 07/19/18 09:40 Dose: 5 mg Ascorbic Acid (Vitamin C 500 Mg Tab) 500 mg PO DAILY [facility] Last Admin: 07/19/18 09:41 Dose: 500 mg Enoxaparin Sodium (Lovenox) 40 mg SC DAILY [facility] Last Admin: 07/19/18 09:41 Dose: Not Given Fluticasone Propionate (Flonase) 0 spr SYLVAIN BID [facility] Last Admin: 07/19/18 09:42 Dose: 1 spr Gabapentin (Neurontin) 300 mg PO HS [facility] Last Admin: 07/18/18 21:26 Dose: 300 mg Vancomycin HCl 1 gm/ Sodium (Chloride) 250 mls @ 166.7 mls/hr IVPB Q24H [facility]; Protocol Last Admin: 07/18/18 17:31 Dose: 166.7 mls/hr Piperacillin Sod/Tazobactam Sod (Zosyn 3.375 Gm Iv Premix) 3.375 gm in 50 mls @ 100 mls/hr IVPB Q8H [facility]; Protocol Last Admin: 07/19/18 10:04 Dose: 100 mls/hr Multivitamins (Hexavitamin) 1 tab PO DAILY [facility] Last Admin: 07/19/18 09:40 Dose: 1 tab - Labs Labs: 07/19/18 08:21 07/19/18 08:21 PT 11.2 SECONDS (9.7-12.2) 07/17/18 11:24 INR 1.0 07/17/18 11:24 APTT 29 SECONDS (21-34) 07/17/18 11:24 - Constitutional Appears: Non-toxic, No Acute Distress - Head Exam Head Exam: ATRAUMATIC, NORMOCEPHALIC - Eye Exam Eye Exam: EOMI - ENT Exam ENT Exam: Mucous Membranes Moist - Respiratory Exam Respiratory Exam: NORMAL BREATHING PATTERN - Cardiovascular Exam Cardiovascular Exam: +S1, +S2 - GI/Abdominal Exam GI & Abdominal Exam: Soft. absent: Tenderness - Extremities Exam Additional comments: LLE DP and PT palpable 2+ - Neurological Exam Neurological Exam: Alert, Awake - Psychiatric Exam Psychiatric exam: Normal Affect, Normal Mood - Skin Skin Exam: Dry, Intact Assessment and Plan - Assessment and Plan (Free Text) Assessment: 58M with Right hallux ulcer Patient PVR show good wave forms and HERMES. No surgical management indicated at this time. continue management per podiatry. Further recs per Dr. Alex Looney PGY3
--- NOTE | 2018-07-19 12:30 | CP.PCM.PN ---
Subjective - Date & Time of Evaluation Date of Evaluation: 07/19/18 Time of Evaluation: 07:15 - Subjective Subjective: clinically same Objective - Vital Signs/Intake and Output Vital Signs (last 24 hours): Temp Pulse Resp BP Pulse Ox 98.7 F 83 20 115/75 97 07/19/18 08:10 07/19/18 08:10 07/19/18 08:10 07/19/18 08:10 07/19/18 08:10 Intake and Output: 07/19/18 07/19/18 06:59 18:59 Intake Total 930 500 Output Total 650 Balance 280 500 - Medications Medications: Current Medications Acetaminophen (Tylenol 325mg Tab) 650 mg PO Q6 PRN PRN Reason: Fever >100.4 F Last Admin: 07/17/18 17:47 Dose: 650 mg Amlodipine Besylate (Norvasc) 5 mg PO DAILY [facility] Last Admin: 07/19/18 09:40 Dose: 5 mg Ascorbic Acid (Vitamin C 500 Mg Tab) 500 mg PO DAILY [facility] Last Admin: 07/19/18 09:41 Dose: 500 mg Enoxaparin Sodium (Lovenox) 40 mg SC DAILY [facility] Last Admin: 07/19/18 09:41 Dose: Not Given Fluticasone Propionate (Flonase) 0 spr SYLVAIN BID [facility] Last Admin: 07/19/18 09:42 Dose: 1 spr Gabapentin (Neurontin) 300 mg PO HS [facility] Last Admin: 07/18/18 21:26 Dose: 300 mg Vancomycin HCl 1 gm/ Sodium (Chloride) 250 mls @ 166.7 mls/hr IVPB Q24H [facility]; Protocol Last Admin: 07/18/18 17:31 Dose: 166.7 mls/hr Piperacillin Sod/Tazobactam Sod (Zosyn 3.375 Gm Iv Premix) 3.375 gm in 50 mls @ 100 mls/hr IVPB Q8H [facility]; Protocol Last Admin: 07/19/18 10:04 Dose: 100 mls/hr Multivitamins (Hexavitamin) 1 tab PO DAILY [facility] Last Admin: 07/19/18 09:40 Dose: 1 tab - Labs Labs: 07/19/18 08:21 07/19/18 08:21 PT 11.2 SECONDS (9.7-12.2) 07/17/18 11:24 INR 1.0 07/17/18 11:24 APTT 29 SECONDS (21-34) 07/17/18 11:24 - Constitutional Appears: Well - Head Exam Head Exam: ATRAUMATIC, NORMAL INSPECTION, NORMOCEPHALIC - Eye Exam Eye Exam: EOMI, Normal appearance, PERRL Pupil Exam: NORMAL ACCOMODATION, PERRL - ENT Exam ENT Exam: Mucous Membranes Moist, Normal Exam - Neck Exam Neck Exam: Full ROM, Normal Inspection. absent: Lymphadenopathy - Respiratory Exam Respiratory Exam: Decreased Breath Sounds - Cardiovascular Exam Cardiovascular Exam: REGULAR RHYTHM, +S1, +S2 - GI/Abdominal Exam GI & Abdominal Exam: Tenderness, Diminished Bowel Sounds - Rectal Exam Rectal Exam: Deferred Assessment and Plan (1) Osteomyelitis Status: Acute (2) Toe ulcer Status: Acute (3) Alcohol abuse Status: Acute (4) Alcohol intoxication Status: Acute (5) Hypothermia Status: Acute (6) Thrombocytopenia Status: Acute (7) Visit for wound check Status: Acute
--- NOTE | 2018-07-19 17:27 | CP.PCM.PN ---
Subjective - Date & Time of Evaluation Date of Evaluation: 07/19/18 Time of Evaluation: 09:00 - Subjective Subjective: 58M was sent to by his distributor advertising material for ulcer of L hallux. Pt states he has had a small ulcer on his L great toe for some time now He has been seeing his distributor advertising material and was told to come to the hospital for further evaluation of his vascular disease. ID CONSULTED FOR ANTIBIOTIC MANAGEMENT PODIATRY AND VASCULAR ON BOARD IMAGING AND CULTURES PENDING Objective - Vital Signs/Intake and Output Vital Signs (last 24 hours): Temp Pulse Resp BP Pulse Ox 98.2 F 68 20 130/80 98 07/19/18 16:13 07/19/18 16:13 07/19/18 16:13 07/19/18 16:13 07/19/18 16:13 Intake and Output: 07/19/18 07/19/18 06:59 18:59 Intake Total 930 500 Output Total 650 Balance 280 500 - Medications Medications: Current Medications Acetaminophen (Tylenol 325mg Tab) 650 mg PO Q6 PRN PRN Reason: Fever >100.4 F Last Admin: 07/17/18 17:47 Dose: 650 mg Amlodipine Besylate (Norvasc) 5 mg PO DAILY [facility] Last Admin: 07/19/18 09:40 Dose: 5 mg Ascorbic Acid (Vitamin C 500 Mg Tab) 500 mg PO DAILY [facility] Last Admin: 07/19/18 09:41 Dose: 500 mg Enoxaparin Sodium (Lovenox) 40 mg SC DAILY [facility] Last Admin: 07/19/18 09:41 Dose: Not Given Fluticasone Propionate (Flonase) 0 spr SYLVAIN BID [facility] Last Admin: 07/19/18 09:42 Dose: 1 spr Gabapentin (Neurontin) 300 mg PO HS [facility] Last Admin: 07/18/18 21:26 Dose: 300 mg Vancomycin HCl 1 gm/ Sodium (Chloride) 250 mls @ 166.7 mls/hr IVPB Q24H [facility]; Protocol Last Admin: 07/18/18 17:31 Dose: 166.7 mls/hr Piperacillin Sod/Tazobactam Sod (Zosyn 3.375 Gm Iv Premix) 3.375 gm in 50 mls @ 100 mls/hr IVPB Q8H [facility]; Protocol Last Admin: 07/19/18 10:04 Dose: 100 mls/hr Multivitamins (Hexavitamin) 1 tab PO DAILY [facility] Last Admin: 07/19/18 09:40 Dose: 1 tab - Labs Labs: 07/19/18 08:21 07/19/18 08:21 PT 11.2 SECONDS (9.7-12.2) 07/17/18 11:24 INR 1.0 07/17/18 11:24 APTT 29 SECONDS (21-34) 07/17/18 11:24 - Constitutional Appears: Non-toxic - Head Exam Head Exam: NORMOCEPHALIC - Eye Exam Eye Exam: absent: Scleral icterus - ENT Exam ENT Exam: Mucous Membranes Dry - Neck Exam Neck Exam: absent: Lymphadenopathy - Respiratory Exam Respiratory Exam: Decreased Breath Sounds - Cardiovascular Exam Cardiovascular Exam: REGULAR RHYTHM - GI/Abdominal Exam GI & Abdominal Exam: Distended, Soft Assessment and Plan (1) Osteomyelitis Status: Acute (2) Toe ulcer Status: Acute (3) Alcohol abuse Status: Acute - Assessment and Plan (Free Text) Assessment: 58M was sent to by his distributor advertising material for ulcer of L hallux. Pt states he has had a small ulcer on his L great toe for some time now He has been seeing his distributor advertising material and was told to come to the hospital for further evaluation of his vascular disease. ID CONSULTED FOR ANTIBIOTIC MANAGEMENT PODIATRY AND VASCULAR ON BOARD IMAGING AND CULTURES PENDING
[2018-07-20] MEDS: Piperacill/Tazo 3.375gm in Dex 3.375 GM/50 ML BAG IVPB SCH ×3 (03:03→20:07)
[2018-07-20 08:49] LABS: BASO # 0.1 K/uL (0.0-0.2); BASO % 1.3 % (0.0-2.0); EOS # 0.3 K/uL (0.0-0.7); EOS % 4.6 % (0.0-4.0); HEMOGLOBIN 14.1 g/dL (12.0-18.0); LYMPH # 1.6 K/uL (1.0-4.3); LYMPH % 21.9 % (20.0-40.0); MEAN CELL VOLUME 97.9 fL (80.0-94.0); MEAN CORPUSCULAR HEMOGLOBIN 33.7 pg (27.0-31.0); MEAN CORPUSCULAR HGB CONC 34.4 g/dL (33.0-37.0); MEAN PLATELET VOLUME 9.5 fL (7.2-11.7); MONO % 14.1 % (0.0-10.0); NEUT # 4.2 K/uL (1.8-7.0); NEUT % 58.1 % (50.0-75.0); NRBC % 0.1 % (0.0-2.0); RBC 4.19 Mil/uL (4.40-5.90); RED CELL DISTRIBUTION WIDTH 14.7 % (11.5-14.5); WHITE BLOOD COUNT 7.3 K/uL (4.8-10.8)
[2018-07-20 09:10] LABS: ALB/GLOB RATIO 1.3 (1.0-2.1); ALBUMIN 4.3 g/dL (3.5-5.0); ALT/SGPT 26 U/L (21-72); AST/SGOT 67 U/L (17-59); BLOOD UREA NITROGEN 14 mg/dL (9-20); CALCIUM 9.2 mg/dl (8.6-10.4); GFR NON-AFRICAN AMERICAN > 60
[2018-07-20] MEDS: Enoxaparin 40 mg Syringe SC SCH (10:02)
[2018-07-20] MEDS: Multiple Vitamins Tab PO SCH (10:02)
[2018-07-20] MEDS: Fluticasone Nasal 50 mcg/Spray NAS SCH ×2 (10:03→20:11)
--- NOTE | 2018-07-20 11:22 | CP.PCM.PN ---
Subjective - Date & Time of Evaluation Date of Evaluation: 07/20/18 Time of Evaluation: 11:20 - Subjective Subjective: Podiatry Progress Note for Dr. Blackman 58M seen and evaluated at bedside for left hallux ulceration. Patient is AAO x 3 and NAD, resting comfortably in bed. Denies any acute overnight events or new pedal complaints. States that pain is well controlled. Denies any recent N/V/F/C/CP/SOB/D Objective - Vital Signs/Intake and Output Vital Signs (last 24 hours): Temp Pulse Resp BP Pulse Ox 97.9 F 72 20 112/75 96 07/20/18 08:18 07/20/18 08:18 07/20/18 08:18 07/20/18 08:18 07/20/18 08:18 Intake and Output: 07/20/18 07/20/18 06:59 18:59 Intake Total 1200 Output Total 850 Balance 350 - Medications Medications: Current Medications Acetaminophen (Tylenol 325mg Tab) 650 mg PO Q6 PRN PRN Reason: Fever >100.4 F Last Admin: 07/17/18 17:47 Dose: 650 mg Amlodipine Besylate (Norvasc) 5 mg PO DAILY [facility] Last Admin: 07/20/18 10:02 Dose: 5 mg Ascorbic Acid (Vitamin C 500 Mg Tab) 500 mg PO DAILY [facility] Last Admin: 07/20/18 10:02 Dose: 500 mg Enoxaparin Sodium (Lovenox) 40 mg SC DAILY [facility] Last Admin: 07/20/18 10:02 Dose: 40 mg Fluticasone Propionate (Flonase) 0 spr SYLVAIN BID [facility] Last Admin: 07/20/18 10:03 Dose: 1 spr Gabapentin (Neurontin) 300 mg PO HS [facility] Last Admin: 07/19/18 21:44 Dose: 300 mg Piperacillin Sod/Tazobactam Sod (Zosyn 3.375 Gm Iv Premix) 3.375 gm in 50 mls @ 100 mls/hr IVPB Q8H [facility]; Protocol Last Admin: 07/20/18 10:03 Dose: 100 mls/hr Vancomycin HCl 1 gm/ Sodium (Chloride) 250 mls @ 166.7 mls/hr IVPB Q12H [facility]; Protocol Last Admin: 07/20/18 05:55 Dose: 166.7 mls/hr Multivitamins (Hexavitamin) 1 tab PO DAILY [facility] Last Admin: 07/20/18 10:02 Dose: 1 tab - Labs Labs: 07/20/18 08:41 07/20/18 08:41 PT 11.2 SECONDS (9.7-12.2) 07/17/18 11:24 INR 1.0 07/17/18 11:24 APTT 29 SECONDS (21-34) 07/17/18 11:24 - Constitutional Appears: Well, Non-toxic, No Acute Distress - Extremities Exam Additional comments: LLE focused exam: Vasc: DP/PT pulses palpable 2/4. Skin temperature warm to warm from proximal to distal WNL. CFT < 3 seconds to all digits. Minimal edema noted to hallux Neuro: Epicritic and protective sensation grossly diminished Derm: Superficial ulceration with partial overlying callous formation noted to plantar aspect of left hallux. Minimal sanguinous drainage appreciated. No jayesh tiffanie, probe to bone, tracking, tunneling or undermining. No other clinical signs of infection appreciated MSK: Minimal POP to plantar aspect of hallux. 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 Blackman Afebrile, absent leukocytosis Continue abx per ID Wound cx toe: Morg Josseanii Ss Morganii Foot xray: On the lateral view of the great toe plantar cortical irregularities concerning for contiguous osteomyelitis and contiguous cellulitis is suspect. Correlate clinically. The frontal view shows prominent exostosis of the medial great toe distal phalanx ESR: 9 LE US: Read pending Callous formation sharply debrided using #10 blade without incident. Underlying tissue noted to be 100% granular with healthy bleeding appreciated Wound dressed with hydrogen peroxide soaked gauze, DSD No plan for surgical intervention at this time Per Dr. Blackman patient should be treated with abx in rehab facility Podiatry will continue to follow while patient in house
--- NOTE | 2018-07-20 12:21 | CP.PCM.PN ---
Subjective - Date & Time of Evaluation Date of Evaluation: 07/20/18 Time of Evaluation: 09:00 - Subjective Subjective: MRI not done refusing PICC line needs ceretec scan Objective - Vital Signs/Intake and Output Vital Signs (last 24 hours): Temp Pulse Resp BP Pulse Ox 97.9 F 72 20 112/75 96 07/20/18 08:18 07/20/18 08:18 07/20/18 08:18 07/20/18 08:18 07/20/18 08:18 Intake and Output: 07/20/18 07/20/18 06:59 18:59 Intake Total 1200 Output Total 850 Balance 350 - Medications Medications: Current Medications Acetaminophen (Tylenol 325mg Tab) 650 mg PO Q6 PRN PRN Reason: Fever >100.4 F Last Admin: 07/17/18 17:47 Dose: 650 mg Amlodipine Besylate (Norvasc) 5 mg PO DAILY [facility] Last Admin: 07/20/18 10:02 Dose: 5 mg Ascorbic Acid (Vitamin C 500 Mg Tab) 500 mg PO DAILY [facility] Last Admin: 07/20/18 10:02 Dose: 500 mg Enoxaparin Sodium (Lovenox) 40 mg SC DAILY [facility] Last Admin: 07/20/18 10:02 Dose: 40 mg Fluticasone Propionate (Flonase) 0 spr SYLVAIN BID [facility] Last Admin: 07/20/18 10:03 Dose: 1 spr Gabapentin (Neurontin) 300 mg PO HS [facility] Last Admin: 07/19/18 21:44 Dose: 300 mg Piperacillin Sod/Tazobactam Sod (Zosyn 3.375 Gm Iv Premix) 3.375 gm in 50 mls @ 100 mls/hr IVPB Q8H [facility]; Protocol Last Admin: 07/20/18 10:03 Dose: 100 mls/hr Vancomycin HCl 1 gm/ Sodium (Chloride) 250 mls @ 166.7 mls/hr IVPB Q12H [facility]; Protocol Last Admin: 07/20/18 05:55 Dose: 166.7 mls/hr Multivitamins (Hexavitamin) 1 tab PO DAILY [facility] Last Admin: 07/20/18 10:02 Dose: 1 tab - Labs Labs: 07/20/18 08:41 07/20/18 08:41 PT 11.2 SECONDS (9.7-12.2) 07/17/18 11:24 INR 1.0 07/17/18 11:24 APTT 29 SECONDS (21-34) 07/17/18 11:24 - Constitutional Appears: Non-toxic, Chronically Ill - Head Exam Head Exam: NORMOCEPHALIC - Eye Exam Eye Exam: absent: Scleral icterus - ENT Exam ENT Exam: Mucous Membranes Dry - Neck Exam Neck Exam: absent: Lymphadenopathy - Respiratory Exam Respiratory Exam: Decreased Breath Sounds - Cardiovascular Exam Cardiovascular Exam: REGULAR RHYTHM - GI/Abdominal Exam GI & Abdominal Exam: Distended Assessment and Plan (1) Osteomyelitis Status: Acute (2) Toe ulcer Status: Acute (3) Alcohol abuse Status: Acute - Assessment and Plan (Free Text) Assessment: cont iv rx
--- NOTE | 2018-07-20 13:28 | VASCLAB ---
Date of service: 07/17/2018 STUDY DESCRIPTION: Lower Extremity Arterial Exam (PVR). HISTORY: eval for PVD PRIORS: None. TECHNIQUE: Pulse volume recording waveforms and segmental pressures of bilateral lower extremities at multiple levels were obtained. Ankle Brachial Indices (ABIs) were calculated. Report prepared by AGUSTINA Davis, RVT RIGHT LOWER EXTREMITY: * Brachial artery: Pressure - 154 mmHg. * High thigh: Pressure - 182 mmHg: Ratio - 1.18: PVR waveform - Pulsatile * Low thigh: Pressure - 185 mmHg: Ratio - 1.20 PVR waveform: Pulsatile * Calf: Pressure - 174 mmHg: Ratio - 1.13 PVR waveform: Pulsatile * Posterior tibial Artery: Pressure - 182 mmHg: Ratio - 1.18 PVR waveform: Pulsatile * Dorsalis pedis Artery: Pressure - 191 mmHg: Ratio - 1.24 PVR waveform: Pulsatile * Great toe: Pressure - mmHg: Ratio - PVR waveform: Ankle brachial index (HERMES): 1.24 LEFT LOWER EXTREMITY: * Brachial artery: Pressure - 153 mmHg. * High thigh: Pressure - 175 mmHg: Ratio - 1.14: PVR waveform - Pulsatile * Low thigh: Pressure - 184 mmHg: Ratio - 1.19 PVR waveform: Pulsatile * Calf: Pressure - 190 mmHg: Ratio - 1.23 PVR waveform: Pulsatile * Posterior tibial Artery: Pressure - 164 mmHg: Ratio - 1.06 PVR waveform: Pulsatile * Dorsalis pedis Artery: Pressure - 187 mmHg: Ratio - 1.21 PVR waveform: Pulsatile * Great toe: Pressure - mmHg: Ratio - PVR waveform: Ankle brachial index (HERMES): 1.21 OTHER FINDINGS: Right: Left: IMPRESSION: Right: There was no evidence of hemodynamically significant arterial insufficiency in the right lower extremity. Left: There was no evidence of hemodynamically significant arterial insufficiency in the left lower extremity.
--- NOTE | 2018-07-20 18:26 | CP.PCM.PN ---
Subjective - Date & Time of Evaluation Date of Evaluation: 07/20/18 Time of Evaluation: 07:15 - Subjective Subjective: clinically same Objective - Vital Signs/Intake and Output Vital Signs (last 24 hours): Temp Pulse Resp BP Pulse Ox 97.9 F 66 20 120/78 96 07/20/18 16:11 07/20/18 16:11 07/20/18 16:11 07/20/18 16:11 07/20/18 16:11 Intake and Output: 07/20/18 07/20/18 06:59 18:59 Intake Total 1200 Output Total 850 Balance 350 - Medications Medications: Current Medications Acetaminophen (Tylenol 325mg Tab) 650 mg PO Q6 PRN PRN Reason: Fever >100.4 F Last Admin: 07/17/18 17:47 Dose: 650 mg Amlodipine Besylate (Norvasc) 5 mg PO DAILY [facility] Last Admin: 07/20/18 10:02 Dose: 5 mg Ascorbic Acid (Vitamin C 500 Mg Tab) 500 mg PO DAILY [facility] Last Admin: 07/20/18 10:02 Dose: 500 mg Enoxaparin Sodium (Lovenox) 40 mg SC DAILY [facility] Last Admin: 07/20/18 10:02 Dose: 40 mg Fluticasone Propionate (Flonase) 0 spr SYLVAIN BID [facility] Last Admin: 07/20/18 10:03 Dose: 1 spr Gabapentin (Neurontin) 300 mg PO HS [facility] Last Admin: 07/19/18 21:44 Dose: 300 mg Piperacillin Sod/Tazobactam Sod (Zosyn 3.375 Gm Iv Premix) 3.375 gm in 50 mls @ 100 mls/hr IVPB Q8H [facility]; Protocol Last Admin: 07/20/18 10:03 Dose: 100 mls/hr Vancomycin HCl 1 gm/ Sodium (Chloride) 250 mls @ 166.7 mls/hr IVPB Q12H [facility]; Protocol Last Admin: 07/20/18 18:02 Dose: 166.7 mls/hr Multivitamins (Hexavitamin) 1 tab PO DAILY [facility] Last Admin: 07/20/18 10:02 Dose: 1 tab - Labs Labs: 07/20/18 08:41 07/20/18 08:41 PT 11.2 SECONDS (9.7-12.2) 07/17/18 11:24 INR 1.0 07/17/18 11:24 APTT 29 SECONDS (21-34) 07/17/18 11:24 Assessment and Plan (1) Osteomyelitis Status: Acute (2) Toe ulcer Status: Acute (3) Alcohol abuse Status: Acute (4) Alcohol intoxication Status: Acute (5) Hypothermia Status: Acute (6) Thrombocytopenia Status: Acute (7) Visit for wound check Status: Acute
[2018-07-21] MEDS: Piperacill/Tazo 3.375gm in Dex 3.375 GM/50 ML BAG IVPB SCH ×3 (02:57→18:30)
[2018-07-21 08:44] LABS: BASO # 0.1 K/uL (0.0-0.2); BASO % 0.9 % (0.0-2.0); EOS # 0.3 K/uL (0.0-0.7); EOS % 4.1 % (0.0-4.0); HEMOGLOBIN 14.8 g/dL (12.0-18.0); LYMPH # 1.9 K/uL (1.0-4.3); LYMPH % 24.6 % (20.0-40.0); MEAN CELL VOLUME 98.4 fL (80.0-94.0); MEAN CORPUSCULAR HEMOGLOBIN 33.4 pg (27.0-31.0); MEAN PLATELET VOLUME 9.6 fL (7.2-11.7); MONO # 1.2 K/uL (0.0-0.8); MONO % 16.1 % (0.0-10.0); NEUT # 4.1 K/uL (1.8-7.0); NEUT % 54.3 % (50.0-75.0); RBC 4.44 Mil/uL (4.40-5.90); RED CELL DISTRIBUTION WIDTH 14.7 % (11.5-14.5); WHITE BLOOD COUNT 7.6 K/uL (4.8-10.8)
[2018-07-21 09:08] LABS: ALB/GLOB RATIO 1.2 (1.0-2.1); ALBUMIN 4.6 g/dL (3.5-5.0); ALT/SGPT 37 U/L (21-72); AST/SGOT 62 U/L (17-59); BLOOD UREA NITROGEN 17 mg/dL (9-20); CALCIUM 9.5 mg/dl (8.6-10.4); GFR NON-AFRICAN AMERICAN > 60
[2018-07-21] MEDS: Enoxaparin 40 mg Syringe SC SCH (09:48)
[2018-07-21] MEDS: Multiple Vitamins Tab PO SCH (09:48)
[2018-07-21] MEDS: Fluticasone Nasal 50 mcg/Spray NAS SCH ×2 (09:50→17:44)
--- NOTE | 2018-07-21 11:36 | CP.PCM.PN ---
Subjective - Date & Time of Evaluation Date of Evaluation: 07/21/18 Time of Evaluation: 07:15 - Subjective Subjective: clinically same Objective - Vital Signs/Intake and Output Vital Signs (last 24 hours): Temp Pulse Resp BP Pulse Ox 97.7 F 68 20 126/79 97 07/21/18 07:44 07/21/18 07:44 07/21/18 07:44 07/21/18 07:44 07/21/18 07:44 Intake and Output: 07/21/18 07/21/18 06:59 18:59 Intake Total 1330 Output Total 850 Balance 480 - Medications Medications: Current Medications Acetaminophen (Tylenol 325mg Tab) 650 mg PO Q6 PRN PRN Reason: Fever >100.4 F Last Admin: 07/17/18 17:47 Dose: 650 mg Amlodipine Besylate (Norvasc) 5 mg PO DAILY [facility] Last Admin: 07/21/18 09:48 Dose: 5 mg Ascorbic Acid (Vitamin C 500 Mg Tab) 500 mg PO DAILY [facility] Last Admin: 07/21/18 09:48 Dose: 500 mg Enoxaparin Sodium (Lovenox) 40 mg SC DAILY [facility] Last Admin: 07/21/18 09:48 Dose: Not Given Fluticasone Propionate (Flonase) 0 spr SYLVAIN BID [facility] Last Admin: 07/21/18 09:50 Dose: Not Given Gabapentin (Neurontin) 300 mg PO HS [facility] Last Admin: 07/20/18 21:30 Dose: 300 mg Piperacillin Sod/Tazobactam Sod (Zosyn 3.375 Gm Iv Premix) 3.375 gm in 50 mls @ 100 mls/hr IVPB Q8H [facility]; Protocol Last Admin: 07/21/18 10:46 Dose: 100 mls/hr Vancomycin HCl 1 gm/ Sodium (Chloride) 250 mls @ 166.7 mls/hr IVPB Q12H [facility]; Protocol Last Admin: 07/21/18 05:01 Dose: 166.7 mls/hr Multivitamins (Hexavitamin) 1 tab PO DAILY [facility] Last Admin: 07/21/18 09:48 Dose: 1 tab - Labs Labs: 07/21/18 08:35 07/21/18 08:35 PT 11.2 SECONDS (9.7-12.2) 07/17/18 11:24 INR 1.0 07/17/18 11:24 APTT 29 SECONDS (21-34) 07/17/18 11:24 - Constitutional Appears: Well - Head Exam Head Exam: ATRAUMATIC, NORMAL INSPECTION, NORMOCEPHALIC - Eye Exam Eye Exam: EOMI, Normal appearance, PERRL Pupil Exam: NORMAL ACCOMODATION, PERRL - ENT Exam ENT Exam: Mucous Membranes Moist, Normal Exam - Neck Exam Neck Exam: Full ROM, Normal Inspection. absent: Lymphadenopathy - Respiratory Exam Respiratory Exam: Decreased Breath Sounds - Cardiovascular Exam Cardiovascular Exam: REGULAR RHYTHM, +S1, +S2 - GI/Abdominal Exam GI & Abdominal Exam: Soft, Diminished Bowel Sounds - Rectal Exam Rectal Exam: Deferred Assessment and Plan (1) Osteomyelitis Status: Acute (2) Toe ulcer Status: Acute (3) Alcohol abuse Status: Acute (4) Alcohol intoxication Status: Acute (5) Hypothermia Status: Acute (6) Thrombocytopenia Status: Acute (7) Visit for wound check Status: Acute
[2018-07-21] MEDS ORDERED: Gadodiamide 287 mg/ml 20 ml IV ONE (12:33)
--- NOTE | 2018-07-21 12:38 | CP.PCM.PN ---
Subjective - Date & Time of Evaluation Date of Evaluation: 07/21/18 Time of Evaluation: 08:00 - Subjective Subjective: MRI pending Objective - Vital Signs/Intake and Output Vital Signs (last 24 hours): Temp Pulse Resp BP Pulse Ox 97.7 F 68 20 126/79 97 07/21/18 07:44 07/21/18 07:44 07/21/18 07:44 07/21/18 07:44 07/21/18 07:44 Intake and Output: 07/21/18 07/21/18 06:59 18:59 Intake Total 1330 Output Total 850 Balance 480 - Medications Medications: Current Medications Acetaminophen (Tylenol 325mg Tab) 650 mg PO Q6 PRN PRN Reason: Fever >100.4 F Last Admin: 07/17/18 17:47 Dose: 650 mg Amlodipine Besylate (Norvasc) 5 mg PO DAILY [facility] Last Admin: 07/21/18 09:48 Dose: 5 mg Ascorbic Acid (Vitamin C 500 Mg Tab) 500 mg PO DAILY [facility] Last Admin: 07/21/18 09:48 Dose: 500 mg Enoxaparin Sodium (Lovenox) 40 mg SC DAILY [facility] Last Admin: 07/21/18 09:48 Dose: Not Given Fluticasone Propionate (Flonase) 0 spr SYLVAIN BID [facility] Last Admin: 07/21/18 09:50 Dose: Not Given Gabapentin (Neurontin) 300 mg PO HS [facility] Last Admin: 07/20/18 21:30 Dose: 300 mg Piperacillin Sod/Tazobactam Sod (Zosyn 3.375 Gm Iv Premix) 3.375 gm in 50 mls @ 100 mls/hr IVPB Q8H [facility]; Protocol Last Admin: 07/21/18 10:46 Dose: 100 mls/hr Vancomycin HCl 1 gm/ Sodium (Chloride) 250 mls @ 166.7 mls/hr IVPB Q12H [facility]; Protocol Last Admin: 07/21/18 05:01 Dose: 166.7 mls/hr Multivitamins (Hexavitamin) 1 tab PO DAILY [facility] Last Admin: 07/21/18 09:48 Dose: 1 tab - Labs Labs: 07/21/18 08:35 07/21/18 08:35 PT 11.2 SECONDS (9.7-12.2) 07/17/18 11:24 INR 1.0 07/17/18 11:24 APTT 29 SECONDS (21-34) 07/17/18 11:24 - Constitutional Appears: Non-toxic, Chronically Ill - Head Exam Head Exam: NORMOCEPHALIC - Eye Exam Eye Exam: absent: Scleral icterus - ENT Exam ENT Exam: Mucous Membranes Dry - Neck Exam Neck Exam: absent: Lymphadenopathy - Respiratory Exam Respiratory Exam: Decreased Breath Sounds - Cardiovascular Exam Cardiovascular Exam: REGULAR RHYTHM - GI/Abdominal Exam GI & Abdominal Exam: Distended, Soft - Rectal Exam Rectal Exam: Deferred - Exam Exam: NORMAL INSPECTION - Extremities Exam Extremities Exam: Pedal Edema - Back Exam Back Exam: absent: CVA tenderness (L), CVA tenderness (R) - Neurological Exam Neurological Exam: Alert, Awake, CN II-XII Intact Assessment and Plan (1) Osteomyelitis Status: Acute (2) Toe ulcer Status: Acute (3) Alcohol abuse Status: Acute - Assessment and Plan (Free Text) Assessment: 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
--- NOTE | 2018-07-21 13:35 | MRI ---
MRI left forefoot HISTORY: Ulcer. Evaluate for osteomyelitis. Comparison: X-ray dated 07/16/2018 Technique: Multi-echo multiplanar sequences were performed through the left forefoot without and with the use of intravenous contrast. Findings: Ulceration with soft tissue defect noted at the volar aspect of the 1st distal phalanx. Adjacent signal abnormality noted within the 1st distal phalanx with decreased T1 signal and increased STIR signal consistent with an acute osteomyelitis. Fluid noted at the 1st interphalangeal joint space. Curvilinear serpiginous signal abnormality seen within the proximal and midportion of the 1st proximal phalanx demonstrating serpiginous areas of increased STIR signal with central areas of decreased T1 signal concerning for a bone infarct / focal osteonecrosis versus additional etiology. Superimposed acute infectious and or inflammatory changes at this level cannot be excluded. Clinical correlation. Moderate hallux valgus deformity. Resection of the 2nd and 3rd digits to the level of the heads of the proximal phalanges. Incidentally noted is signal abnormality within the head of the 4th middle phalanx demonstrating decreased T1 signal and increased STIR signal which may represent prominent osteochondral change; however, acute infectious and or inflammatory changes at this level cannot be excluded. Clinical correlation. Impression: 1. Ulceration with soft tissue defect noted at the volar aspect of the 1st distal phalanx. Adjacent signal abnormality noted within the 1st distal phalanx with decreased T1 signal and increased STIR signal consistent with an acute osteomyelitis. Fluid noted at the 1st interphalangeal joint space. 2. Curvilinear serpiginous signal abnormality seen within the proximal and midportion of the 1st proximal phalanx demonstrating serpiginous areas of increased STIR signal with central areas of decreased T1 signal concerning for a bone infarct / focal osteonecrosis versus additional etiology. Superimposed acute infectious and or inflammatory changes at this level cannot be excluded. Clinical correlation. 3. Moderate hallux valgus deformity. 4. Resection of the 2nd and 3rd digits to the level of the heads of the proximal phalanges. 5. Incidentally noted is signal abnormality within the head of the 4th middle phalanx demonstrating decreased T1 signal and increased STIR signal which may represent prominent osteochondral change; however, acute infectious and or inflammatory changes at this level cannot be excluded. Clinical correlation.
--- NOTE | 2018-07-21 17:46 | CP.PCM.PN ---
Objective - Vital Signs/Intake and Output Vital Signs (last 24 hours): Temp Pulse Resp BP Pulse Ox 97.7 F 68 20 126/79 97 07/21/18 07:44 07/21/18 07:44 07/21/18 07:44 07/21/18 07:44 07/21/18 07:44 Intake and Output: 07/21/18 07/21/18 06:59 18:59 Intake Total 1330 Output Total 850 Balance 480 - Medications Medications: Current Medications Acetaminophen (Tylenol 325mg Tab) 650 mg PO Q6 PRN PRN Reason: Fever >100.4 F Last Admin: 07/17/18 17:47 Dose: 650 mg Amlodipine Besylate (Norvasc) 5 mg PO DAILY [facility] Last Admin: 07/21/18 09:48 Dose: 5 mg Ascorbic Acid (Vitamin C 500 Mg Tab) 500 mg PO DAILY [facility] Last Admin: 07/21/18 09:48 Dose: 500 mg Enoxaparin Sodium (Lovenox) 40 mg SC DAILY [facility] Last Admin: 07/21/18 09:48 Dose: Not Given Fluticasone Propionate (Flonase) 0 spr SYLVAIN BID [facility] Last Admin: 07/21/18 09:50 Dose: Not Given Gabapentin (Neurontin) 300 mg PO HS [facility] Last Admin: 07/20/18 21:30 Dose: 300 mg Piperacillin Sod/Tazobactam Sod (Zosyn 3.375 Gm Iv Premix) 3.375 gm in 50 mls @ 100 mls/hr IVPB Q8H [facility]; Protocol Last Admin: 07/21/18 10:46 Dose: 100 mls/hr Vancomycin HCl 1 gm/ Sodium (Chloride) 250 mls @ 166.7 mls/hr IVPB Q12H [facility]; Protocol Last Admin: 07/21/18 05:01 Dose: 166.7 mls/hr Multivitamins (Hexavitamin) 1 tab PO DAILY [facility] Last Admin: 07/21/18 09:48 Dose: 1 tab - Labs Labs: 07/21/18 08:35 07/21/18 08:35 PT 11.2 SECONDS (9.7-12.2) 07/17/18 11:24 INR 1.0 07/17/18 11:24 APTT 29 SECONDS (21-34) 07/17/18 11:24 Assessment and Plan - Assessment and Plan (Free Text) Assessment: 58 year old male admitted with left toe ulcer, seen and examined. Alert and orientedx3, denies acute pain or distress. MRI positive for OM, advised for 6 weeks iv antibiotics but he is very afraid of PICC line placement. Will send to [facility] with heplock in place as per DR Ruth Crockett. He has good veins. To be followed up by DR Johnson.
[2018-07-22] MEDS: Piperacill/Tazo 3.375gm in Dex 3.375 GM/50 ML BAG IVPB SCH ×2 (02:23→11:28)
[2018-07-22 06:37] LABS: BASO # 0.1 K/uL (0.0-0.2); EOS # 0.3 K/uL (0.0-0.7); EOS % 4.2 % (0.0-4.0); HEMOGLOBIN 14.1 g/dL (12.0-18.0); LYMPH % 31.2 % (20.0-40.0); MEAN CELL VOLUME 97.7 fL (80.0-94.0); MEAN CORPUSCULAR HEMOGLOBIN 33.2 pg (27.0-31.0); MEAN PLATELET VOLUME 9.4 fL (7.2-11.7); MONO # 1.2 K/uL (0.0-0.8); MONO % 18.3 % (0.0-10.0); NEUT # 2.9 K/uL (1.8-7.0); NEUT % 45.3 % (50.0-75.0); NRBC % 0.1 % (0.0-2.0); RBC 4.24 Mil/uL (4.40-5.90); RED CELL DISTRIBUTION WIDTH 14.4 % (11.5-14.5); WHITE BLOOD COUNT 6.4 K/uL (4.8-10.8)
[2018-07-22 06:48] LABS: ALB/GLOB RATIO 1.3 (1.0-2.1); ALBUMIN 4.4 g/dL (3.5-5.0); ALT/SGPT 40 U/L (21-72); AST/SGOT 54 U/L (17-59); BLOOD UREA NITROGEN 17 mg/dL (9-20); CALCIUM 9.3 mg/dl (8.6-10.4); GFR NON-AFRICAN AMERICAN > 60
[2018-07-22] MEDS: Multiple Vitamins Tab PO SCH (09:56)
[2018-07-22] MEDS: Enoxaparin 40 mg Syringe SC SCH (09:56)
[2018-07-22] MEDS: Fluticasone Nasal 50 mcg/Spray NAS SCH ×2 (09:56→17:10)
--- NOTE | 2018-07-22 14:01 | CP.PCM.PN ---
Subjective - Date & Time of Evaluation Date of Evaluation: 07/22/18 Time of Evaluation: 07:15 - Subjective Subjective: clinically same Objective - Vital Signs/Intake and Output Vital Signs (last 24 hours): Temp Pulse Resp BP Pulse Ox 97.3 F L 66 20 133/84 97 07/22/18 08:38 07/22/18 08:38 07/22/18 08:38 07/22/18 08:38 07/22/18 08:38 Intake and Output: 07/22/18 07/22/18 06:59 18:59 Intake Total 750 Balance 750 - Medications Medications: Current Medications Acetaminophen (Tylenol 325mg Tab) 650 mg PO Q6 PRN PRN Reason: Fever >100.4 F Last Admin: 07/17/18 17:47 Dose: 650 mg Amlodipine Besylate (Norvasc) 5 mg PO DAILY [facility] Last Admin: 07/22/18 09:56 Dose: 5 mg Ascorbic Acid (Vitamin C 500 Mg Tab) 500 mg PO DAILY [facility] Last Admin: 07/22/18 09:56 Dose: 500 mg Enoxaparin Sodium (Lovenox) 40 mg SC DAILY [facility] Last Admin: 07/22/18 09:56 Dose: Not Given Fluticasone Propionate (Flonase) 0 spr SYLVAIN BID [facility] Last Admin: 07/22/18 09:56 Dose: Not Given Gabapentin (Neurontin) 300 mg PO HS [facility] Last Admin: 07/21/18 21:51 Dose: 300 mg Piperacillin Sod/Tazobactam Sod (Zosyn 3.375 Gm Iv Premix) 3.375 gm in 50 mls @ 100 mls/hr IVPB Q8H [facility]; Protocol Last Admin: 07/22/18 11:28 Dose: 100 mls/hr Vancomycin HCl 1 gm/ Sodium (Chloride) 250 mls @ 166.7 mls/hr IVPB Q12H [facility]; Protocol Last Admin: 07/22/18 04:22 Dose: 166.7 mls/hr Multivitamins (Hexavitamin) 1 tab PO DAILY [facility] Last Admin: 07/22/18 09:56 Dose: 1 tab - Labs Labs: 07/22/18 06:17 07/22/18 06:17 PT 11.2 SECONDS (9.7-12.2) 07/17/18 11:24 INR 1.0 07/17/18 11:24 APTT 29 SECONDS (21-34) 07/17/18 11:24 - Constitutional Appears: Well - Head Exam Head Exam: ATRAUMATIC, NORMAL INSPECTION, NORMOCEPHALIC - Eye Exam Eye Exam: EOMI, Normal appearance, PERRL Pupil Exam: NORMAL ACCOMODATION, PERRL - ENT Exam ENT Exam: Mucous Membranes Moist, Normal Exam - Neck Exam Neck Exam: Full ROM, Normal Inspection. absent: Lymphadenopathy - Respiratory Exam Respiratory Exam: Decreased Breath Sounds - Cardiovascular Exam Cardiovascular Exam: REGULAR RHYTHM, +S1, +S2 - GI/Abdominal Exam GI & Abdominal Exam: Soft, Diminished Bowel Sounds - Rectal Exam Rectal Exam: Deferred Assessment and Plan (1) Osteomyelitis Status: Acute (2) Toe ulcer Status: Acute (3) Alcohol abuse Status: Acute (4) Alcohol intoxication Status: Acute (5) Hypothermia Status: Acute (6) Thrombocytopenia Status: Acute (7) Visit for wound check Status: Acute
--- NOTE | 2018-07-22 14:55 | CP.PCM.PN ---
Subjective - Date & Time of Evaluation Date of Evaluation: 07/22/18 Time of Evaluation: 09:30 - Subjective Subjective: Medicine progress note ( Dr Kae Crockett) Patient was seen and examined at bedside. Patient was resting comfortably in bed in no acute distress. Patient denies any symptoms of fever, chills, nausea, vomiting, chest pain, palpitations, shortness of breath, abdominal pain, diarrhea/constipation and numbness/tingling in the left toe. Objective - Vital Signs/Intake and Output Vital Signs (last 24 hours): Temp Pulse Resp BP Pulse Ox 97.3 F L 66 20 133/84 97 07/22/18 08:38 07/22/18 08:38 07/22/18 08:38 07/22/18 08:38 07/22/18 08:38 Intake and Output: 07/22/18 07/22/18 06:59 18:59 Intake Total 750 Balance 750 - Medications Medications: Current Medications Acetaminophen (Tylenol 325mg Tab) 650 mg PO Q6 PRN PRN Reason: Fever >100.4 F Last Admin: 07/17/18 17:47 Dose: 650 mg Amlodipine Besylate (Norvasc) 5 mg PO DAILY [facility] Last Admin: 07/22/18 09:56 Dose: 5 mg Ascorbic Acid (Vitamin C 500 Mg Tab) 500 mg PO DAILY [facility] Last Admin: 07/22/18 09:56 Dose: 500 mg Enoxaparin Sodium (Lovenox) 40 mg SC DAILY [facility] Last Admin: 07/22/18 09:56 Dose: Not Given Fluticasone Propionate (Flonase) 0 spr SYLVAIN BID [facility] Last Admin: 07/22/18 09:56 Dose: Not Given Gabapentin (Neurontin) 300 mg PO HS [facility] Last Admin: 07/21/18 21:51 Dose: 300 mg Piperacillin Sod/Tazobactam Sod (Zosyn 3.375 Gm Iv Premix) 3.375 gm in 50 mls @ 100 mls/hr IVPB Q8H [facility]; Protocol Last Admin: 07/22/18 11:28 Dose: 100 mls/hr Vancomycin HCl 1 gm/ Sodium (Chloride) 250 mls @ 166.7 mls/hr IVPB Q12H [facility]; Protocol Last Admin: 07/22/18 04:22 Dose: 166.7 mls/hr Multivitamins (Hexavitamin) 1 tab PO DAILY [facility] Last Admin: 07/22/18 09:56 Dose: 1 tab - Labs Labs: 07/22/18 06:17 07/22/18 06:17 PT 11.2 SECONDS (9.7-12.2) 07/17/18 11:24 INR 1.0 07/17/18 11:24 APTT 29 SECONDS (21-34) 07/17/18 11:24 - Constitutional Appears: Well, No Acute Distress - Head Exam Head Exam: ATRAUMATIC, NORMAL INSPECTION - Eye Exam Eye Exam: EOMI, Normal appearance - ENT Exam ENT Exam: Mucous Membranes Moist - Respiratory Exam Respiratory Exam: Clear to Ausculation Bilateral, NORMAL BREATHING PATTERN. absent: Accessory Muscle Use, Chest Wall Tenderness, Decreased Breath Sounds, Prolonged Expiratory Phase, Rhonchi, Wheezes, Respiratory Distress - Cardiovascular Exam Cardiovascular Exam: REGULAR RHYTHM, +S1, +S2. absent: Tachycardia, Clicks, +S4, Murmur - GI/Abdominal Exam GI & Abdominal Exam: Soft, Normal Bowel Sounds. absent: Distended, Firm, Guarding, Rigid, Tenderness, Diminished Bowel Sounds - Extremities Exam Extremities Exam: Full ROM, Normal Inspection. absent: Calf Tenderness, Pedal Edema Additional comments: DP pulses presents No limited ROM of left - Neurological Exam Neuro motor strength exam: Left Lower Extremity: 5 - Psychiatric Exam Psychiatric exam: Normal Affect - Skin Skin Exam: Normal Color Assessment and Plan (1) Toe osteomyelitis, left Assessment & Plan: Left Hallux ID, Dr. Pereira * Management as per recommendation Imaging: - Foot X-ray: On the lateral view of the great toe plantar cortical irregularities concerning for contiguous osteomyelitis and contiguous cellulitis is suspect. Correlate clinically. The frontal view shows prominent exostosis of the medial great toe distal phalanx. - Left extremity MRI: Ulceration with soft tissue defect noted at the volar aspect of the 1st distal phalanx. Adjacent signal abnormality noted within the 1st distal phalanx with decreased T1 signal and increased STIR signal consistent with an acute osteomyelitis. Fluid noted at the 1st interphalangeal joint space. 2. Curvilinear serpiginous signal abnormality seen within the proximal and midportion of the 1st proximal phalanx demonstrating serpiginous areas of increased STIR signal with central areas of decreased T1 signal concerning for a bone infarct / focal osteonecrosis versus additional etiology. Superimposed acute infectious and or inflammatory changes at this level cannot be excluded. Clinical correlation. 3. Moderate hallux valgus deformity. 4. Resection of the 2nd and 3rd digits to the level of the heads of the proximal phalanges. 5. Incidentally noted is signal abnormality within the head of the 4th middle phalanx demonstrating decreased T1 signal and increased STIR signal which may represent prominent osteochondral change; however, acute infectious and or inflammatory changes at this level cannot be excluded. Clinical correlation. Labs: * Wound culture: S. Morganni Medications: * Vancomycin IV 1gm Q12H (07/20/18) * Zosyn 3.375gm IV Q8H (Started 07/16/18)----> discontinued 07/22/18 * Cefepime 1gm IV Q12H ( Started 07/22/18) * Multivitamin 1 tab PO daily * Vitamin C 500mg PO daily * Florastor 250mg PO BID * Gabapentin 300mg PO HS Status: Acute (2) Hypertension Assessment & Plan: Norvasc 5mg PO daily Status: Acute (3) Prophylactic measure Assessment & Plan: GI: Not indicated DVT: Lovenox 40mg SC daily Disposition: Plans for discharge to [facility] on Friday. Patient PICC line inserted today, 07/22/18 and placement confirmed by Chest X- ray Patient started on Cefepime 1gm IV Q12H 07/22/18 Patient will need Vanco 1gm IV Q12H and Cefepime 1gm IV Q12H for a total of 6 weeks All plans and management discussed with Dr. Nima Crockett Status: Acute
--- NOTE | 2018-07-22 15:17 | RAD ---
Date of service: 07/22/2018 HISTORY: verify left PICC COMPARISON: Chest radiographs 07/16/2018. FINDINGS: LUNGS: Left PICC catheter inserted in the interval terminating at the distal superior cava. No active pulmonary disease. PLEURA: No significant pleural effusion identified, no pneumothorax apparent. CARDIOVASCULAR: No aortic atherosclerotic calcification present. Normal cardiac size. No pulmonary vascular congestion. OSSEOUS STRUCTURES: Multilevel thoracic spondylosis/enthesiophytes. VISUALIZED UPPER ABDOMEN: Normal. OTHER FINDINGS: None. IMPRESSION: No acute cardiopulmonary disease. Left PICC inserted as discussed above.
[2018-07-22] MEDS: Cefepime IV 1 gm in Dextrose 1 GM/50 ML BAG IVPB SCH (16:21)
--- NOTE | 2018-07-22 16:46 | CP.PCM.PN ---
Subjective - Date & Time of Evaluation Date of Evaluation: 07/22/18 Time of Evaluation: 16:41 - Subjective Subjective: Podiatry Progress Note for Dr. Blackman 58M seen at bedside for left hallux ulceration. Patient is AAO x 3 and NAD, resting comfortably in bed. Denies any pain to foot, new pedal complaints or overnight events. Denies any recent N/V/F/C/CP/SOB/D Objective - Vital Signs/Intake and Output Vital Signs (last 24 hours): Temp Pulse Resp BP Pulse Ox 98.3 F 67 20 125/77 98 07/22/18 15:15 07/22/18 15:15 07/22/18 15:15 07/22/18 15:15 07/22/18 15:15 Intake and Output: 07/22/18 07/22/18 06:59 18:59 Intake Total 750 Balance 750 - Medications Medications: Current Medications Acetaminophen (Tylenol 325mg Tab) 650 mg PO Q6 PRN PRN Reason: Fever >100.4 F Last Admin: 07/17/18 17:47 Dose: 650 mg Amlodipine Besylate (Norvasc) 5 mg PO DAILY [facility] Last Admin: 07/22/18 09:56 Dose: 5 mg Ascorbic Acid (Vitamin C 500 Mg Tab) 500 mg PO DAILY [facility] Last Admin: 07/22/18 09:56 Dose: 500 mg Enoxaparin Sodium (Lovenox) 40 mg SC DAILY [facility] Last Admin: 07/22/18 09:56 Dose: Not Given Fluticasone Propionate (Flonase) 0 spr SYLVAIN BID [facility] Last Admin: 07/22/18 09:56 Dose: Not Given Gabapentin (Neurontin) 300 mg PO HS [facility] Last Admin: 07/21/18 21:51 Dose: 300 mg Vancomycin HCl 1 gm/ Sodium (Chloride) 250 mls @ 166.7 mls/hr IVPB Q12H [facility]; Protocol Last Admin: 07/22/18 04:22 Dose: 166.7 mls/hr Cefepime HCl (Maxipime Iv 1 Gm Premix) 1 gm in 50 mls @ 100 mls/hr IVPB Q12H [facility]; Protocol Last Admin: 07/22/18 16:21 Dose: 100 mls/hr Multivitamins (Hexavitamin) 1 tab PO DAILY [facility] Last Admin: 07/22/18 09:56 Dose: 1 tab Saccharomyces Boshannandii (Florastor) 250 mg PO BID [facility] - Labs Labs: 07/22/18 06:17 07/22/18 06:17 PT 11.2 SECONDS (9.7-12.2) 07/17/18 11:24 INR 1.0 07/17/18 11:24 APTT 29 SECONDS (21-34) 07/17/18 11:24 - Constitutional Appears: Well, Non-toxic, No Acute Distress - Extremities Exam Additional comments: LLE focused exam: Vasc: DP/PT pulses palpable 2/4. Skin temperature warm to warm from proximal to distal WNL. CFT < 3 seconds to all digits. Minimal edema noted to hallux Neuro: Epicritic and protective sensation grossly diminished Derm: Superficial ulceration with partial overlying callous formation noted to plantar aspect of left hallux. No drainage appreciated. No malodor, probe to bone, tracking, tunneling or undermining. No other clinical signs of infection appreciated MSK: Minimal POP to plantar aspect of hallux. 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 Blackman Afebrile, absent leukocytosis Continue IV abx per ID Wound cx toe: Richard Knox Ss Morganii Foot xray: On the lateral view of the great toe plantar cortical irregularities concerning for contiguous osteomyelitis and contiguous cellulitis is suspect. Correlate clinically. The frontal view shows prominent exostosis of the medial great toe distal phalanx ESR: 9 LE arterial US: No evidence of hemodynamic insufficiency to b/l LE LE MRI: Evidence suggestive of OM to distal phalanx of left hallux appreciated Plan to treat with jail IV abx Wound dressed with hydrogen peroxide soaked gauze No plan for surgical intervention at this time Podiatry will continue to follow while patient in house
[2018-07-22] MEDS: Saccharomyces Boulardi 250 mg Cap PO SCH (17:09)
--- NOTE | 2018-07-22 19:39 | CP.PCM.PN ---
Subjective - Date & Time of Evaluation Date of Evaluation: 07/22/18 Time of Evaluation: 08:00 - Subjective Subjective: PICC in place wound stable Objective - Vital Signs/Intake and Output Vital Signs (last 24 hours): Temp Pulse Resp BP Pulse Ox 98.3 F 67 20 125/77 98 07/22/18 15:15 07/22/18 15:15 07/22/18 15:15 07/22/18 15:15 07/22/18 15:15 - Medications Medications: Current Medications Acetaminophen (Tylenol 325mg Tab) 650 mg PO Q6 PRN PRN Reason: Fever >100.4 F Last Admin: 07/17/18 17:47 Dose: 650 mg Amlodipine Besylate (Norvasc) 5 mg PO DAILY [facility] Last Admin: 07/22/18 09:56 Dose: 5 mg Ascorbic Acid (Vitamin C 500 Mg Tab) 500 mg PO DAILY [facility] Last Admin: 07/22/18 09:56 Dose: 500 mg Enoxaparin Sodium (Lovenox) 40 mg SC DAILY [facility] Last Admin: 07/22/18 09:56 Dose: Not Given Fluticasone Propionate (Flonase) 0 spr SYLVAIN BID [facility] Last Admin: 07/22/18 17:10 Dose: Not Given Gabapentin (Neurontin) 300 mg PO HS [facility] Last Admin: 07/21/18 21:51 Dose: 300 mg Vancomycin HCl 1 gm/ Sodium (Chloride) 250 mls @ 166.7 mls/hr IVPB Q12H [facility]; Protocol Last Admin: 07/22/18 17:09 Dose: 166.7 mls/hr Cefepime HCl (Maxipime Iv 1 Gm Premix) 1 gm in 50 mls @ 100 mls/hr IVPB Q12H [facility]; Protocol Last Admin: 07/22/18 16:21 Dose: 100 mls/hr Multivitamins (Hexavitamin) 1 tab PO DAILY [facility] Last Admin: 07/22/18 09:56 Dose: 1 tab Saccharomyces Boulardii (Florastor) 250 mg PO BID [facility] Last Admin: 07/22/18 17:09 Dose: 250 mg - Labs Labs: 07/22/18 06:17 07/22/18 06:17 PT 11.2 SECONDS (9.7-12.2) 07/17/18 11:24 INR 1.0 07/17/18 11:24 APTT 29 SECONDS (21-34) 07/17/18 11:24 - Constitutional Appears: Non-toxic, Chronically Ill - Head Exam Head Exam: NORMOCEPHALIC - Eye Exam Eye Exam: absent: Scleral icterus - ENT Exam ENT Exam: Mucous Membranes Dry - Neck Exam Neck Exam: absent: Lymphadenopathy - Respiratory Exam Respiratory Exam: Decreased Breath Sounds - Cardiovascular Exam Cardiovascular Exam: REGULAR RHYTHM - GI/Abdominal Exam GI & Abdominal Exam: Distended, Soft - Rectal Exam Rectal Exam: Deferred - Exam Exam: NORMAL INSPECTION Assessment and Plan (1) Osteomyelitis Status: Acute (2) Toe ulcer Status: Acute (3) Alcohol abuse Status: Acute - Assessment and Plan (Free Text) Assessment: cont iv rx and woound care
[2018-07-23] MEDS: Cefepime IV 1 gm in Dextrose 1 GM/50 ML BAG IVPB SCH ×2 (04:16→17:13)
[2018-07-23 04:30] LABS: BASO # 0.1 K/uL (0.0-0.2); BASO % 1.1 % (0.0-2.0); EOS # 0.3 K/uL (0.0-0.7); EOS % 3.7 % (0.0-4.0); HEMOGLOBIN 14.3 g/dL (12.0-18.0); LYMPH # 2.1 K/uL (1.0-4.3); LYMPH % 29.3 % (20.0-40.0); MEAN CELL VOLUME 97.2 fL (80.0-94.0); MEAN CORPUSCULAR HEMOGLOBIN 33.6 pg (27.0-31.0); MEAN CORPUSCULAR HGB CONC 34.6 g/dL (33.0-37.0); MEAN PLATELET VOLUME 9.1 fL (7.2-11.7); MONO # 1.1 K/uL (0.0-0.8); MONO % 15.7 % (0.0-10.0); NEUT # 3.6 K/uL (1.8-7.0); NEUT % 50.2 % (50.0-75.0); NRBC % 0.1 % (0.0-2.0); RBC 4.24 Mil/uL (4.40-5.90); RED CELL DISTRIBUTION WIDTH 14.4 % (11.5-14.5); WHITE BLOOD COUNT 7.1 K/uL (4.8-10.8)
[2018-07-23 05:55] LABS: ALB/GLOB RATIO 1.3 (1.0-2.1); ALBUMIN 4.6 g/dL (3.5-5.0); ALT/SGPT 43 U/L (21-72); AST/SGOT 59 U/L (17-59); BLOOD UREA NITROGEN 15 mg/dL (9-20); CALCIUM 9.4 mg/dl (8.6-10.4); GFR NON-AFRICAN AMERICAN > 60
[2018-07-23] MEDS: Saccharomyces Boulardi 250 mg Cap PO SCH ×2 (09:44→17:35)
[2018-07-23] MEDS: Multiple Vitamins Tab PO SCH (09:44)
[2018-07-23] MEDS: Fluticasone Nasal 50 mcg/Spray NAS SCH ×2 (09:46→17:36)
[2018-07-23] MEDS: Enoxaparin 40 mg Syringe SC SCH (09:46)
--- NOTE | 2018-07-23 19:33 | CP.PCM.PN ---
Subjective - Date & Time of Evaluation Date of Evaluation: 07/23/18 Time of Evaluation: 07:15 - Subjective Subjective: clinically same Objective - Vital Signs/Intake and Output Vital Signs (last 24 hours): Temp Pulse Resp BP Pulse Ox 98.3 F 75 20 133/80 98 07/23/18 16:24 07/23/18 16:24 07/23/18 16:24 07/23/18 16:24 07/23/18 16:24 - Medications Medications: Current Medications Acetaminophen (Tylenol 325mg Tab) 650 mg PO Q6 PRN PRN Reason: Fever >100.4 F Last Admin: 07/17/18 17:47 Dose: 650 mg Amlodipine Besylate (Norvasc) 5 mg PO DAILY [facility] Last Admin: 07/23/18 09:44 Dose: 5 mg Ascorbic Acid (Vitamin C 500 Mg Tab) 500 mg PO DAILY [facility] Last Admin: 07/23/18 09:44 Dose: 500 mg Fluticasone Propionate (Flonase) 0 spr SYLVAIN BID [facility] Last Admin: 07/23/18 17:36 Dose: Not Given Gabapentin (Neurontin) 300 mg PO HS [facility] Last Admin: 07/22/18 21:37 Dose: 300 mg Vancomycin HCl 1 gm/ Sodium (Chloride) 250 mls @ 166.7 mls/hr IVPB Q12H [facility]; Protocol Last Admin: 07/23/18 17:54 Dose: 166.7 mls/hr Cefepime HCl (Maxipime Iv 1 Gm Premix) 1 gm in 50 mls @ 100 mls/hr IVPB Q12H [facility]; Protocol Last Admin: 07/23/18 17:13 Dose: 100 mls/hr Multivitamins (Hexavitamin) 1 tab PO DAILY [facility] Last Admin: 07/23/18 09:44 Dose: 1 tab Saccharomyces Boulardii (Florastor) 250 mg PO BID [facility] Last Admin: 07/23/18 17:35 Dose: 250 mg - Labs Labs: 07/23/18 04:27 07/23/18 04:27 PT 11.2 SECONDS (9.7-12.2) 07/17/18 11:24 INR 1.0 07/17/18 11:24 APTT 29 SECONDS (21-34) 07/17/18 11:24 - Constitutional Appears: Well - Head Exam Head Exam: ATRAUMATIC, NORMAL INSPECTION, NORMOCEPHALIC - Eye Exam Eye Exam: EOMI, Normal appearance, PERRL Pupil Exam: NORMAL ACCOMODATION, PERRL - ENT Exam ENT Exam: Mucous Membranes Moist, Normal Exam - Neck Exam Neck Exam: Full ROM, Normal Inspection. absent: Lymphadenopathy - Respiratory Exam Respiratory Exam: Decreased Breath Sounds - Cardiovascular Exam Cardiovascular Exam: REGULAR RHYTHM, +S1, +S2 - GI/Abdominal Exam GI & Abdominal Exam: Soft, Diminished Bowel Sounds - Rectal Exam Rectal Exam: Deferred Assessment and Plan (1) Osteomyelitis Status: Acute (2) Toe ulcer Status: Acute (3) Alcohol abuse Status: Acute (4) Alcohol intoxication Status: Acute (5) Hypothermia Status: Acute (6) Thrombocytopenia Status: Acute (7) Visit for wound check Status: Acute - Assessment and Plan (Free Text) Plan: Continue Patient refused that. PICC line and on the midline patient is to midline patient is antibiotic for 4 more weeks Follow-up with Dr. Huber Follow-up with the regional wildlife agent Follow-up with consultations Awaiting for rehab placement Discussed with the patient agreed Medical problem list 9
[2018-07-24] MEDS: Cefepime IV 1 gm in Dextrose 1 GM/50 ML BAG IVPB SCH (03:50)
[2018-07-24 07:01] LABS: BASO # 0.1 K/uL (0.0-0.2); EOS # 0.2 K/uL (0.0-0.7); EOS % 3.1 % (0.0-4.0); HEMOGLOBIN 14.5 g/dL (12.0-18.0); LYMPH # 2.1 K/uL (1.0-4.3); LYMPH % 28.7 % (20.0-40.0); MEAN CELL VOLUME 97.3 fL (80.0-94.0); MEAN CORPUSCULAR HEMOGLOBIN 33.4 pg (27.0-31.0); MEAN CORPUSCULAR HGB CONC 34.3 g/dL (33.0-37.0); MEAN PLATELET VOLUME 9.3 fL (7.2-11.7); MONO # 1.1 K/uL (0.0-0.8); MONO % 15.5 % (0.0-10.0); NEUT # 3.8 K/uL (1.8-7.0); NEUT % 51.7 % (50.0-75.0); NRBC % 0.1 % (0.0-2.0); RBC 4.33 Mil/uL (4.40-5.90); RED CELL DISTRIBUTION WIDTH 14.4 % (11.5-14.5); WHITE BLOOD COUNT 7.3 K/uL (4.8-10.8)
[2018-07-24 07:36] LABS: ALB/GLOB RATIO 1.2 (1.0-2.1); ALBUMIN 4.4 g/dL (3.5-5.0); ALT/SGPT 47 U/L (21-72); AST/SGOT 59 U/L (17-59); BLOOD UREA NITROGEN 17 mg/dL (9-20); CALCIUM 9.3 mg/dl (8.6-10.4); GFR NON-AFRICAN AMERICAN > 60
[2018-07-24 09:17] VITALS: RESP 20
[2018-07-24] MEDS: Fluticasone Nasal 50 mcg/Spray NAS SCH (09:50)
[2018-07-24] MEDS: Saccharomyces Boulardi 250 mg Cap PO SCH (09:50)
[2018-07-24] MEDS: Multiple Vitamins Tab PO SCH (09:50)
--- NOTE | 2018-07-24 10:40 | CP.PCM.PN ---
Subjective - Date & Time of Evaluation Date of Evaluation: 07/24/18 Time of Evaluation: 10:39 - Subjective Subjective: Podiatry Progress Note for Dr. Blackman 58M seen at bedside for left hallux ulceration. Patient is AAO x 3 and NAD, resting comfortably in bed. Denies any pain to foot, new pedal complaints or overnight events. Denies any recent N/V/F/C/CP/SOB/D Objective - Vital Signs/Intake and Output Vital Signs (last 24 hours): Temp Pulse Resp BP Pulse Ox 97.9 F 62 20 124/77 98 07/24/18 07:00 07/24/18 07:00 07/24/18 07:00 07/24/18 07:00 07/24/18 07:00 Intake and Output: 07/24/18 07/24/18 06:59 18:59 Intake Total 650 Output Total 600 Balance 50 - Medications Medications: Current Medications Acetaminophen (Tylenol 325mg Tab) 650 mg PO Q6 PRN PRN Reason: Fever >100.4 F Last Admin: 07/17/18 17:47 Dose: 650 mg Amlodipine Besylate (Norvasc) 5 mg PO DAILY [facility] Last Admin: 07/24/18 09:50 Dose: 5 mg Ascorbic Acid (Vitamin C 500 Mg Tab) 500 mg PO DAILY [facility] Last Admin: 07/24/18 09:50 Dose: 500 mg Fluticasone Propionate (Flonase) 0 spr SYLVAIN BID [facility] Last Admin: 07/24/18 09:50 Dose: Not Given Gabapentin (Neurontin) 300 mg PO [facility] Last Admin: 07/23/18 21:35 Dose: 300 mg Vancomycin HCl 1 gm/ Sodium (Chloride) 250 mls @ 166.7 mls/hr IVPB Q12H [facility]; Protocol Last Admin: 07/24/18 04:00 Dose: 166.7 mls/hr Cefepime HCl (Maxipime Iv 1 Gm Premix) 1 gm in 50 mls @ 100 mls/hr IVPB Q12H [facility]; Protocol Last Admin: 07/24/18 03:50 Dose: 100 mls/hr Multivitamins (Hexavitamin) 1 tab PO DAILY [facility] Last Admin: 07/24/18 09:50 Dose: 1 tab Saccharomyces Boulardii (Florastor) 250 mg PO BID [facility] Last Admin: 07/24/18 09:50 Dose: 250 mg - Labs Labs: 07/24/18 06:47 07/24/18 06:47 PT 11.2 SECONDS (9.7-12.2) 07/17/18 11:24 INR 1.0 07/17/18 11:24 APTT 29 SECONDS (21-34) 07/17/18 11:24 - Constitutional Appears: Well, Non-toxic - Head Exam Head Exam: ATRAUMATIC - Extremities Exam Additional comments: LLE focused exam: Vasc: DP/PT pulses palpable 2/4. Skin temperature warm to warm from proximal to distal WNL. CFT < 3 seconds to all digits. Minimal edema noted to hallux Neuro: Epicritic and protective sensation grossly diminished Derm: Superficial ulceration with partial overlying callous formation noted to plantar aspect of left hallux. No drainage appreciated. No malodor, probe to bone, tracking, tunneling or undermining. No other clinical signs of infection appreciated MSK: Minimal POP to plantar aspect of hallux. 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 Blackman Afebrile, absent leukocytosis Continue IV abx per ID Wound cx toe: Morg Josseanii Ss Morganii Foot xray: On the lateral view of the great toe plantar cortical irregularities concerning for contiguous osteomyelitis and contiguous cellulitis is suspect. Correlate clinically. The frontal view shows prominent exostosis of the medial great toe distal phalanx ESR: 9 LE arterial US: No evidence of hemodynamic insufficiency to b/l LE LE MRI: Evidence suggestive of OM to distal phalanx of left hallux appreciated Plan to treat with shelter IV abx Wound dressed with hydrogen peroxide soaked gauze No plan for surgical intervention at this time Podiatry will continue to follow while patient in house
--- NOTE | 2018-07-24 14:21 | CP.PCM.PN ---
Subjective - Date & Time of Evaluation Date of Evaluation: 07/24/18 Time of Evaluation: 09:15 - Subjective Subjective: Medicine progress note ( Dr Kae Wells) Patient was seen and examined at bedside. Patient was resting comfortably in bed in no acute distress. Patient denies any symptoms of fever, chills, nausea, vomiting, chest pain, palpitations, shortness of breath, abdominal pain, diarrhea/constipation and numbness/tingling in the left toe. Objective - Vital Signs/Intake and Output Vital Signs (last 24 hours): Temp Pulse Resp BP Pulse Ox 97.9 F 62 20 124/77 98 07/24/18 07:00 07/24/18 07:00 07/24/18 07:00 07/24/18 07:00 07/24/18 07:00 Intake and Output: 07/24/18 07/24/18 06:59 18:59 Intake Total 650 Output Total 600 Balance 50 - Medications Medications: Current Medications Acetaminophen (Tylenol 325mg Tab) 650 mg PO Q6 PRN PRN Reason: Fever >100.4 F Last Admin: 07/17/18 17:47 Dose: 650 mg Amlodipine Besylate (Norvasc) 5 mg PO DAILY [facility] Last Admin: 07/24/18 09:50 Dose: 5 mg Ascorbic Acid (Vitamin C 500 Mg Tab) 500 mg PO DAILY [facility] Last Admin: 07/24/18 09:50 Dose: 500 mg Fluticasone Propionate (Flonase) 0 spr SYLVAIN BID [facility] Last Admin: 07/24/18 09:50 Dose: Not Given Gabapentin (Neurontin) 300 mg PO HS [facility] Last Admin: 07/23/18 21:35 Dose: 300 mg Vancomycin HCl 1 gm/ Sodium (Chloride) 250 mls @ 166.7 mls/hr IVPB Q12H [facility]; Protocol Last Admin: 07/24/18 04:00 Dose: 166.7 mls/hr Cefepime HCl (Maxipime Iv 1 Gm Premix) 1 gm in 50 mls @ 100 mls/hr IVPB Q12H [facility]; Protocol Last Admin: 07/24/18 03:50 Dose: 100 mls/hr Multivitamins (Hexavitamin) 1 tab PO DAILY [facility] Last Admin: 07/24/18 09:50 Dose: 1 tab Saccharomyces Boulardii (Florastor) 250 mg PO BID [facility] Last Admin: 07/24/18 09:50 Dose: 250 mg - Labs Labs: 07/24/18 06:47 07/24/18 06:47 PT 11.2 SECONDS (9.7-12.2) 07/17/18 11:24 INR 1.0 07/17/18 11:24 APTT 29 SECONDS (21-34) 07/17/18 11:24 - Constitutional Appears: Well, No Acute Distress - Head Exam Head Exam: ATRAUMATIC, NORMAL INSPECTION - Eye Exam Eye Exam: EOMI, Normal appearance - ENT Exam ENT Exam: Mucous Membranes Moist - Respiratory Exam Respiratory Exam: Clear to Ausculation Bilateral, NORMAL BREATHING PATTERN - Cardiovascular Exam Cardiovascular Exam: REGULAR RHYTHM, +S1, +S2 - GI/Abdominal Exam GI & Abdominal Exam: Soft, Normal Bowel Sounds - Extremities Exam Extremities Exam: absent: Calf Tenderness, Pedal Edema Additional comments: Left Hallux dressing clean, dry and intact - Neurological Exam Neurological Exam: Alert, Awake, Oriented x3 Neuro motor strength exam: Left Lower Extremity: 5 - Psychiatric Exam Psychiatric exam: Normal Affect - Skin Skin Exam: Normal Color Assessment and Plan (1) Toe osteomyelitis, left Assessment & Plan: Left Hallux ID, Dr. Pereira * Management as per recommendation Imaging: - Foot X-ray: On the lateral view of the great toe plantar cortical irregularities concerning for contiguous osteomyelitis and contiguous cellulitis is suspect. Correlate clinically. The frontal view shows prominent exostosis of the medial great toe distal phalanx. - Left extremity MRI: Ulceration with soft tissue defect noted at the volar aspect of the 1st distal phalanx. Adjacent signal abnormality noted within the 1st distal phalanx with decreased T1 signal and increased STIR signal consistent with an acute osteomyelitis. Fluid noted at the 1st interphalangeal joint space. 2. Curvilinear serpiginous signal abnormality seen within the proximal and mid portion of the 1st proximal phalanx demonstrating serpiginous areas of increased STIR signal with central areas of decreased T1 signal concerning for a bone infarct / focal osteonecrosis versus additional etiology. Superimposed acute infectious and or inflammatory changes at this level cannot be excluded. Clinical correlation. 3. Moderate hallux valgus deformity. 4. Resection of the 2nd and 3rd digits to the level of the heads of the proximal phalanges. 5. Incidentally noted is signal abnormality within the head of the 4th middle phalanx demonstrating decreased T1 signal and increased STIR signal which may represent prominent osteochondral change; however, acute infectious and or inflammatory changes at this level cannot be excluded. Clinical correlation. Labs: * Wound culture: S. Morganni Medications: * Vancomycin IV 1gm Q12H (07/20/18)--> 1.67gm IV Q12H due to Vanc trough goal of 15-20 * Zosyn 3.375gm IV Q8H (Started 07/16/18)----> discontinued 07/22/18 * Cefepime 1gm IV Q12H ( Started 07/22/18) * Multivitamin 1 tab PO daily * Vitamin C 500mg PO daily * Florastor 250mg PO BID * Gabapentin 300mg PO HS Status: Acute (2) Hypertension Assessment & Plan: Norvasc 5mg PO daily Status: Acute (3) Prophylactic measure Assessment & Plan: GI: Not indicated DVT: Lovenox 40mg SC daily Disposition: Please discharge patient to [facility] Patient to complete 6 weeks of Vancomycin 1.7gm IV Q12H and Cefepime 1 gm IV Q12 H. Patient has only completed 4 days of Vancomycine and 2.5 days of Cefepime over the course of admission at [facility]. Please ensure a total of 6 weeks course of mentioned antibiotics are completed as per Dr. Pereira for left Hallux osteomyelitis Please check CMP, CMP and Vanc trough level Q before every fourth dose or weekly. Please keep in mind the goal of vancomycin trough for the treatment of Osteomyelitis is 15-20, therefore, vancomycin dose should be adjusted accordingly. Please follow up with Dr. Johnson Podiatry Wound care daily as instructed; Wound dressed with hydrogen peroxide soaked gauze Please continue the rest of your medication as instructed: Norvasc 5mg PO daily Vitamin C 500mg PO daily Multivitamin 1 tab PO daily Gabapentin 300mg PO HS Florastor 250mg PO BID or any other probiotics over the course of antibiotics treatment Please take care All plans and management discussed with Dr. Cira wells Status: Acute
[2018-07-24] MEDS ORDERED: Vancomycin 1.7 GM in Sodium Chloride 0.9% 500 ML IVPB SCH (16:00)
[2018-07-24 16:30] VITALS: BP 126/61; PULSE 60; TEMP 98.6; O2SAT 97
== END 2018-07-24 16:49 | DRG 566 ==
LOC: C.ER 15:06 → C.3T 17:01
PROVIDERS: ADMIT Internal Medicine Nephrology; ATTEND Internal Medicine Nephrology
DX: E11.69 Type 2 diabetes mellitus with other specified complication (principal); M86.172 Other acute osteomyelitis, left ankle and foot; L97.529 Non-pressure chronic ulcer of other part of left foot with unspecified severity; D69.6 Thrombocytopenia, unspecified; E11.621 Type 2 diabetes mellitus with foot ulcer; E78.00 Pure hypercholesterolemia, unspecified; I10 Essential (primary) hypertension; M20.10 Hallux valgus (acquired), unspecified foot; Z86.73 Personal history of transient ischemic attack (TIA), and cerebral infarction without residual deficits; Z87.891 Personal history of nicotine dependence; F10.129 Alcohol abuse with intoxication, unspecified; Z89.411 Acquired absence of right great toe

== ENCOUNTER 2018-08-05 07:12 | Day surgery (SDC) | payer OTHER ==
[2018-08-05] MEDS ORDERED: Bacitracin 50,000 UNIT in Sodium Chloride 0.9% Irrig 1,000 ML IR SCH (07:56)
[2018-08-05] MEDS ORDERED: Midazolam 2 MG/2 ML VIAL ONE (08:59)
[2018-08-05] MEDS ORDERED: Propofol 10 mg/ml Inj (20 ML) ONE (08:59)
[2018-08-05] MEDS ORDERED: Bupivacaine HCl 0.5% PF (30 ml) Inj ONE (09:00)
[2018-08-05] MEDS ORDERED: Lidocaine 2% MPF (5 ml) Inj ONE (09:00)
[2018-08-05] MEDS ORDERED: Bacitracin Ointment 30 GM TUBE ONE (09:01)
[2018-08-05] MEDS ORDERED: ceFAZolin 1 gm FROZEN Premix 0 GM/0 ML ML IVPB ONE (09:01)
[2018-08-05] MEDS ORDERED: Oxycodone/Acetaminophen 5/325 mg Tab PO PRN ×2 (10:03)
--- NOTE | 2018-08-05 10:11 | PCM.SURG1 ---
Surgeon's Initial Post Op Note - Surgeon's Notes Surgeon: Dr. Blackman, DPM Application Programmer Analyst: Dr. Julieta Acevedo, PGY1 Type of Anesthesia: IV Sedation Pre-Operative Diagnosis: Chronic ulcer L great toe, osteomyelitis Operative Findings: See dicatation: I: none. M: 3-0 Chromic gut, 3-0 Nylon Post-Operative Diagnosis: Same Operation Performed: Partial ostectomy L great toe Specimen/Specimens Removed: None Estimated Blood Loss: EBL {In ML}: 5 Blood Products Given: N/A Drains Used: No Drains Post-Op Condition: Good Date of Surgery/Procedure: 08/05/18 Time of Surgery/Procedure: 10:14
[2018-08-05] MEDS: HYDROmorphone 0.5 mg/0.5 ml ISec IVP PRN ×2 (10:34→11:00)
[2018-08-05 10:57] VITALS: TEMP 97.8
[2018-08-05 11:49] VITALS: RESP 18; O2SAT 100
[2018-08-05 12:32] VITALS: BP 130/66; PULSE 78
--- NOTE | 2018-08-05 13:14 | RAD ---
Date of service: 08/05/2018 PROCEDURE: Left Foot Radiographs. HISTORY: s/p L foot surgery COMPARISON: 07/16/2018 FINDINGS: BONES: No acute fracture. Possible interval bunionectomy. Status post amputation 2nd and 3rd digit at the distal aspect of the proximal phalanx. Productive bony change seen at the base of the 1st distal phalanx. No change from prior. JOINTS: Normal. SOFT TISSUES: Normal. OTHER FINDINGS: None. IMPRESSION: Status post bunionectomy. Prior amputation 2nd and 3rd digit as above. No plain radiographic evidence of osteomyelitis.
--- NOTE | 2018-08-11 08:42 | PCM.OP ---
Operative Report - Operative Report Date of Surgery/Procedure: 08/05/18 Time of Surgery/Procedure: 10:45 Surgeon: Dr. Hiral DPM Geriatric Nurse Practitioner: Dr. Julieta Acevedo PGY1 Anesthesia/Sedation: IV sedation with local Pre-Operative Diagnosis: Chronic ulcer L great toe, osteomyelitis Post-Operative Diagnosis: Chronic ulcer L great toe, osteomyelitis Indication for Surgery: The patient is a 58 year-old male with the above diagnoses. The patient has exhausted all conservative treatment at this time and now requests surgical intervention. The patient signed the consent after careful explanation of risks, benefits, complication and alternatives for surgical procedure. No guarantees were given nor implied. Operative Findings: Exostosis of distal phalanx of hallux with plantar protrusion Procedure/Operation Description: Preparation: The patient was brought in to the operating room and placed on the operating room table in a supine position. Timeout was performed for identification of the correct patient and procedure. The patient received a total of mixture of a 1:1 mix of 1% lidocaine plain and 0.5% marcaine plain in a local block type fashion to the left hallux. Once local anesthesia was achieved, the left foot was then prepped and draped in normal sterile manner. Procedure 1: Partial ostectomy left great toe Attention was then directed to the medial aspect of the hallux and an approximately 4 cm linear incision was made with a number 15 blade. The incision was deepened through the subcutaneous tissues using sharp and blunt dissection. Care was taken to identify and retract all vital neurovascular structures. All bleeders were cauterized and ligated as necessary. Utilizing a reciprocal antonio the bony prominence located to the plantar aspect of the hallux was debrided and all rough edges were then smoothed down. Next, a ronguer was utilized to remove the remaining osseous accessory bone from the plantar aspect of the hallux. Correction of the deformity was assessed at this time and was noted to be excellent. The surgical site was then flushed with copious amount of sterile normal saline solution. Next, the subcutaneous tissue was reapproximated with 3-0 chromic gut. The skin was then reapproximated and coapted utilizing #3-0 nylon in a simple suture technique. Wound was dressed with adaptic, DSD, and SEFERINO. Estimated Blood Loss: 5 Complications: None Discharge & Condition: Postoperative Condition: The patient tolerated the anesthesia and procedure well and was escorted to the recovery room with vital signs stable and neurovascular status intact to the right and left foot. This patient will follow up with Dr. Blackman in office in 1 week.
== END 2018-08-05 12:25 | disposition home or self-care (01) ==
LOC: C.SDS 07:12
PROVIDERS: ATTEND Podiatrist Foot Surgery
DX: M86.672 Other chronic osteomyelitis, left ankle and foot (principal); L97.529 Non-pressure chronic ulcer of other part of left foot with unspecified severity; I10 Essential (primary) hypertension; I73.9 Peripheral vascular disease, unspecified; M86.172 Other acute osteomyelitis, left ankle and foot
CPT/HCPCS: 28124; 73630; J1170; J2250; J2704; J3010

== ENCOUNTER 2018-12-21 14:20 | Outpatient (CLI) | payer OTHER | END 2018-12-21 14:21 | disposition home or self-care (01) | LOC: C.RADH 14:20 | DX: M20.41 Other hammer toe(s) (acquired), right foot (principal); M24.574 Contracture, right foot; L97.411 Non-pressure chronic ulcer of right heel and midfoot limited to breakdown of skin ==